=== PATIENT | female | born 1970 | race Caucasian/White ===

== ENCOUNTER 2017-01-06 12:05 | Emergency (ER) | payer OTHER, MEDICAID ==
[2017-01-06] MEDS ORDERED: OLANZapine DISINTEGR 5 MG TAB PO ONE (12:34)
--- NOTE | 2017-01-06 12:35 | EDPHY ---
Mental Health General Previous Psychiatric History: bipolar, PTSD Smoking Status: Current every day smoker Time Patient Placed on M1 Hold: 11:40 Time of Transfer of Care: 17:[address]:: Cristóbal Narrative: CHIEF COMPLAINT: M1 hold, suicidal ideations HISTORY OF PRESENT ILLNESS: 46-year-old female presents to the emergency department on an M1 hold for acute psychosis. [facility] when she reported SI and not wanting to live. Pt is rambling and unable to have a conversation. She has a history of bipolar and ptsd. Unknown if she is taking medications. Pt reports SI. She denies HI. REVIEW OF SYSTEMS: Unable to obtain due to mental status. Physical Exam Gen: Awake, agitated HEENT: PERRL, dry mucous membranes NECK: no meningismus CV: regular rate and regular rhythm PULM: CTAB, no wheezes ABDOMEN: soft, non tender to palpation, BS present BACK: No CVA tenderness NEURO: Follows commands, no facial asymmetry, moves all extremities EXTREMITIES: normal appearing SKIN: no rash or break in skin on exposed skin PSYCH: Rambling, tangential, anxious, suspicious, suicidal (Laverne Lo) Medical Decision Makin-Report passed on to Dr. Ambrocio at the end of my shift pending mental health evaluation. Urine tox screen positive for methamphetamines. Eval 12 hours later. (Laverne Lo) 1700 care assumed by me from REMY Lo pending mental health evaluation. [address] patient signed out to Dr. Ng pending mental health evaluation. No issues during my care this patient. (Kody Ambrocio) [id number]: Donald with P, has seen and evaluated patient. On METH. Calm cooperative. Denies suicidal ideation. She would like to be discharged from the emergency room. She was evaluated by mental health. Mental state is due to methamphetamine abuse. She has, cooperative. Does not want hurt herself or anybody else. Mental health does not feel that they need to admit her for inpatient psychiatric stabilization. They recommend outpatient follow-up and discharge. I did go Greet the patient meet with her. She is resting comfortably no acute distress., cooperative does not want hurt herself or anybody else. (Shashank Ng) - Objective Vital Signs: Initial Vital Signs Temperature (C) 36.8 C 01/06/17 12:14 Heart Rate 96 01/06/17 12:14 Respiratory Rate 20 01/06/17 12:14 Blood Pressure 127/92 H 01/06/17 12:14 O2 Sat (%) 97 01/06/17 12:14 O2 Delivery Mode Room Air Allergies/Adverse Reactions: nitrofurantoin [From Macrobid] Allergy (Verified 03/07/16 19:07) nitrofurantoin macrocrystalline [From Macrobid] Allergy (Verified 03/07/16 19:07 ) Home Medications: Medication Instructions Recorded Acyclovir 5% [Zovirax 5% 15 GM 1 celia TP 5XD PRN 03/02/16 (RX)] Acyclovir [Zovirax 400 mg (*)] 400 mg PO 5XD PRN 03/02/16 Albuterol [Proventil Inhaler HFA 1 - 2 puffs IH Q4H PRN 03/02/16 (*)] Atomoxetine HCl [Strattera] 40 mg PO DAILY 03/02/16 Budesonide 180 Mcg INH [Pulmicort 1 puffs IH BID 03/02/16 180Mcg Flexhaler (*)] Ibuprofen [Motrin (*)] 600 mg PO Q8H PRN 03/02/16 Acetaminophen [Tylenol 325mg (*)] 650 mg PO Q4HRS PRN #0 tab 03/05/16 Ertapenem [INVanz] 1 gm IV DAILY #0 vial 03/05/16 clonazePAM [Klonopin (*)] 0.5 mg PO TID PRN #30 tab 03/05/16 clonazePAM [klonoPIN (*)] 2 mg PO DAILY PRN #10 tab 03/05/16 oxyCODONE HCL [Oxycontin] 20 mg PO Q12H #20 tab.er.12h 03/05/16 oxyCODONE IR [Oxycodone Ir (*)] 5 - 10 mg PO Q4 PRN #40 tab 03/05/16 Perephazine 03/07/16 Neurontin 01/06/17 Seroquel 01/06/17 traZODone 01/06/17 Medications Given: Discontinued Medications Gabapentin (Neurontin) 600 mg PO EDNOW ONE Stop: 01/06/17 19:14 Last Admin: 01/06/17 19:26 Dose: 600 mg Olanzapine (Zyprexa Zydis) 5 mg PO EDNOW ONE Stop: 01/06/17 12:35 Last Admin: 01/06/17 12:49 Dose: 5 mg Quetiapine Fumarate (Seroquel) 100 mg PO EDNOW ONE Stop: 01/06/17 19:14 Last Admin: 01/06/17 19:26 Dose: 100 mg Laboratory Results: Laboratory Results 01/06/17 13:30 01/06/17 13:30 Departure - Departure Disposition: Home, Routine, Self-Care Clinical Impression: Methamphetamine abuse Condition: Good Instructions: Methamphetamine Abuse (ED) Additional Instructions: 1. Return emergency room immediately if he develops thoughts of wanting to hurt herself or anybody else. 2. Refrain from doing methamphetamine. Referrals: NONE *PRIMARY CARE P,. [Primary Care Provider] - As per Instructions
[2017-01-06 13:35] LABS: % IMMATURE GRANULYOCYTES 0.4 % (0.0-1.1); ABSOLUTE IMMATURE GRANULOCYTES 0.03 10^3/uL (0.00-0.10); ADD DIFF? NO; ADD MORPH? NO; ADD SCAN? NO; ATYPICAL LYMPHOCYTE FLAG 20 (0-99); FRAGMENT RBC FLAG 0 (0-99); HEMATOCRIT 41.2 % (38.0-47.0); HEMOGLOBIN 14.2 g/dL (12.6-16.3); LEFT SHIFT FLG 0 (0-99); LIPEMIA HEMOLYSIS FLAG 90 (0-99); MEAN CELL HEMOGLOBIN 32.9 pg (27.9-34.1); MEAN CELL HEMOGLOBIN CONCENTR. 34.5 g/dL (32.4-36.7); MEAN CELL VOLUME 95.4 fL (81.5-99.8); MEAN PLATELET VOLUME 9.2 fL (8.7-11.7); PLATELET CLUMPS FLAG 0 (0-99); PLATELET COUNT 230 10^3/uL (150-400); RED BLOOD CELL COUNT 4.32 10^6/uL (4.18-5.33); RED CELL DISTRIBUTION WIDTH 12.2 % (11.5-15.2)
[2017-01-06 13:51] LABS: ANION GAP 14 mEq/L (8-16); CALCIUM 10.1 mg/dL (8.5-10.4); CARBON DIOXIDE 19 mEq/l (22-31); CHLORIDE 104 mEq/L (97-110); CREATININE 0.6 mg/dL (0.6-1.0); ETHANOL SERUM < 10 mg/dL (0-10); GLOMERULAR FILTRATION RATE > 60; GLUCOSE 80 mg/dL (70-100); POTASSIUM 3.9 mEq/L (3.5-5.2); SODIUM 137 mEq/L (134-144)
[2017-01-06 16:54] VITALS: RESP 16
[2017-01-06] MEDS ORDERED: GABAPENTIN 300 MG CAP PO ONE (19:13)
[2017-01-06] MEDS ORDERED: QUEtiapine FUMARATE 200 MG TAB PO ONE (19:13)
[2017-01-06 22:52] VITALS: O2SAT 96
[2017-01-07 05:50] VITALS: BP 123/75; PULSE 74; TEMP 97.9
== END 2017-01-07 05:51 | disposition home or self-care (01) ==
LOC: EDUNIT#
DX: F15.10 Other stimulant abuse, uncomplicated (principal); F17.200 Nicotine dependence, unspecified, uncomplicated
CPT/HCPCS: 80305; G0480

== ENCOUNTER 2017-02-28 08:44 | Emergency (ER) | payer OTHER, MEDICAID ==
--- NOTE | 2017-02-28 09:31 | EDPHY ---
H & P Time Seen by Provider: 02/28/17 08:57 HPI/ROS: CHIEF COMPLAINT: "Sinus symptoms " HISTORY OF PRESENT ILLNESS: Patient is a 39-year-old female who presents to the emergency department with ongoing sinus symptoms. Patient states that she has had sinus congestion for past month. It has worsened over the past week. She describes sinus pressure. She has had nasal congestion. She has had a mild headache. No fevers or chills. No nausea or vomiting. No abdominal pain. No cough or shortness of breath. REVIEW OF SYSTEMS: My complete review of systems is negative except as mentioned in the HPI. Past Medical/Surgical History: Includes cystitis, chronic pain, attention deficit hyperactivity disorder, bipolar disorder Includes: Tonsillectomy Social history: The patient is homeless. Smoking Status: Current every day smoker Physical Exam: Vitals noted GENERAL: Well-appearing, in no acute distress, alert. HEENT: Eyes normal to inspection, normal pharynx, no signs of dehydration. NECK: No thyromegaly, no lymphadenopathy, supple. RESPIRATORY: Clear to auscultation bilaterally, no rales, rhonchi or wheezing. CVS: Regular rate and rhythm, no rubs, murmurs, or gallops. ABDOMEN: Soft, nontender, nondistended, no organomegaly. BACK: Normal to inspection, no CVA tenderness. SKIN: Normal color, no rash, warm, dry. No pallor. EXTREMITIES: No pedal edema, no calf tenderness, no Homans sign or cords, no joint swelling. NEURO/PSYCH: Alert and oriented x3, normal mood and affect, normal motor sensory exam. Constitutional: Initial Vital Signs Temperature (C) 36.5 C 02/28/17 08:48 Heart Rate 104 H 02/28/17 08:48 Respiratory Rate 18 02/28/17 08:48 Blood Pressure 113/77 02/28/17 08:48 O2 Sat (%) 95 02/28/17 08:48 O2 Delivery Mode Room Air Allergies/Adverse Reactions: nitrofurantoin [From Macrobid] Allergy (Verified 03/07/16 19:07) nitrofurantoin macrocrystalline [From Macrobid] Allergy (Verified 03/07/16 19:07 ) Home Medications: Medication Instructions Recorded Acyclovir 5% [Zovirax 5% 15 GM 1 celia TP 5XD PRN 03/02/16 (RX)] Acyclovir [Zovirax 400 mg (*)] 400 mg PO 5XD PRN 03/02/16 Albuterol [Proventil Inhaler HFA 1 - 2 puffs IH Q4H PRN 03/02/16 (*)] Atomoxetine HCl [Strattera] 40 mg PO DAILY 03/02/16 Budesonide 180 Mcg INH [Pulmicort 1 puffs IH BID 03/02/16 180Mcg Flexhaler (*)] Ibuprofen [Motrin (*)] 600 mg PO Q8H PRN 03/02/16 Acetaminophen [Tylenol 325mg (*)] 650 mg PO Q4HRS PRN #0 tab 03/05/16 Ertapenem [INVanz] 1 gm IV DAILY #0 vial 03/05/16 clonazePAM [Klonopin (*)] 0.5 mg PO TID PRN #30 tab 03/05/16 clonazePAM [klonoPIN (*)] 2 mg PO DAILY PRN #10 tab 03/05/16 oxyCODONE HCL [Oxycontin] 20 mg PO Q12H #20 tab.er.12h 03/05/16 oxyCODONE IR [Oxycodone Ir (*)] 5 - 10 mg PO Q4 PRN #40 tab 03/05/16 Perephazine 03/07/16 Neurontin 01/06/17 Seroquel 01/06/17 traZODone 01/06/17 Medical Decision Making ED Course/Re-evaluation: In the emergency department I discussed possible etiologies with the patient. I answered all her questions. She will be given a prescription for Augmentin. She is given the 1st dose in the emergency department. She is given warnings prior to leaving. She will return with worsening symptoms. Differential Diagnosis: My differential includes but is not limited to sinusitis, viral illness, bronchitis, pneumonia, bacteremia, sepsis, mass, malignancy, subarachnoid hemorrhage, CVA Departure - Departure Disposition: Home, Routine, Self-Care Clinical Impression: Sinusitis Qualifiers: Sinusitis location: frontal Chronicity: acute Recurrence: recurrent Qualified Code(s): J01.11 - Acute recurrent frontal sinusitis Condition: Good Instructions: Sinusitis (ED) Additional Instructions: Take your entire course of antibiotics. Return with worsening symptoms. Referrals: Carter Andrew MD [Primary Care Provider] - 2-3 days, if not improved
[2017-02-28 09:48] VITALS: BP 103/73; PULSE 17; RESP 19; TEMP 98.5; O2SAT 98
== END 2017-02-28 09:46 | disposition home or self-care (01) ==
DX: J01.11 Acute recurrent frontal sinusitis (principal); F17.200 Nicotine dependence, unspecified, uncomplicated

== ENCOUNTER 2017-09-10 10:14 | Emergency (ER) | payer OTHER, MEDICAID ==
--- NOTE | 2017-09-10 10:19 | EDPHY ---
HPI/HX/ROS/PE/MDM Narrative: CHIEF COMPLAINT: Left upper abdominal pain HPI: The patient is a 47 y/o female with a history of schizoaffective disorder and bipolar disorder arriving via EMS with [facility] complaining of left upper abdominal pain. Per [facility], [facility] was called to the patient's car 2 days ago as her [place]. At this time [facility] discovered that the patient was living out of her car. Today [facility] was called again and the patient stated that she wanted to kill herself. [facility] placed the patient on an M1 hold for suicidal ideations. The patient has not been taking her psychiatric medications. At this time she also started complaining of left upper abdominal pain and a decreased appetite. The pain has since resolved and she is unable to describe how the pain felt. Denies vomiting, diarrhea, recent trauma, chest pain , shortness of breath, numbness, paresthesias or fever. REVIEW OF SYSTEMS: Aside from elements discussed in the HPI, a comprehensive 10-point review of systems was reviewed and is negative. PMH: Schizoaffective disorder, bipolar SOCIAL HISTORY: Transient, single, not employed PHYSICAL EXAM: General: Patient is alert, in no acute distress. ENT: Eyes are normal to inspection. ENT inspection normal. Neck: Normal inspection. Full range of motion. Respiratory: No respiratory distress. Breath sounds normal bilaterally. Cardiovascular: Regular rate and rhythm. Strong peripheral pulses. Normal cap refill. Abdomen: The abdomen is nontender to palpation. There are no peritoneal signs. There are normal bowel sounds. Back: Normal to inspection. No tenderness to palpation. Skin: Normal color. No rash. Warm and dry. Extremities: Normal appearance. Full range of motion. Neuro: Oriented x3. Normal motor function. Normal sensory function. Psych: Flat affect, denies suicidal ideation. (Erick Montero) ED Course: 1016: I met EMS upon arrival. 1352: Patient's CBC and BMP are normal; UA and drug toxicity screen ordered. 1500: Patient care has been turned over to Dr. Ramos at shift change. (Erick Montero) 7:20 p.m. patient has not received any of her medications that she normally takes daily or multiple times a day while she has been here in the emergency department. We had pharmacy reconcile her meds. We will give her her medication that would be due either today or this afternoon. (Raphael Ramos) 0607: Patient has been seen and evaluated by mental health. She contracts for safety she is no longer suicidal or homicidal. She does have a chronic use of methamphetamine and admits to doing methamphetamine. The M1 hold has been lifted. She has a follow-up plan in place. She is comfortable being discharged. She did have a full evaluation with mental health. (Shashank Ng ) MDM: Patient has remained stable on my shift. She is given her evening medication. Her tox screen is positive for amphetamine . She is awaiting evaluation Care to Dr. Ng at midnight (Raphael Ramos) - Data Points Laboratory Results: Laboratory Results 09/10/17 11:44 09/10/17 11:44 Medications Given: Discontinued Medications Acetaminophen (Tylenol) 650 mg PO EDNOW ONE Stop: 09/10/17 20:06 Last Admin: 09/10/17 20:11 Dose: 650 mg Clonazepam (Klonopin) 0.5 mg PO EDNOW ONE Stop: 09/10/17 19:26 Last Admin: 09/10/17 20:14 Dose: 0.5 mg Clonidine (Catapres) 0.05 mg PO EDNOW ONE Stop: 09/10/17 19:27 Last Admin: 09/10/17 20:14 Dose: 0.05 mg Famotidine (Pepcid) 20 mg PO EDNOW ONE Stop: 09/10/17 20:07 Last Admin: 09/10/17 20:10 Dose: 20 mg Gabapentin (Neurontin) 600 mg PO EDNOW ONE Stop: 09/10/17 19:27 Last Admin: 09/10/17 20:14 Dose: 600 mg Lamotrigine (Lamictal) 100 mg PO EDNOW ONE Stop: 09/10/17 19:26 Last Admin: 09/10/17 20:12 Dose: 100 mg Perphenazine (Trilafon) 4 mg PO EDNOW ONE Stop: 09/10/17 19:29 Last Admin: 09/10/17 20:11 Dose: 4 mg Throat Lozenges (Cepacol Lozenge) 1 ea PO EDNOW ONE Stop: 09/10/17 14:33 Last Admin: 09/10/17 14:44 Dose: 1 ea General Time Seen by Provider: 09/10/17 10:16 Initial Vital Signs: Initial Vital Signs Temperature (C) 36.5 C 09/10/17 10:15 Heart Rate 87 09/10/17 10:15 Respiratory Rate 16 09/10/17 10:15 Blood Pressure 138/85 H 09/10/17 10:15 O2 Sat (%) 97 09/10/17 10:15 O2 Delivery Mode Room Air Allergies/Adverse Reactions: nitrofurantoin [From Macrobid] Allergy (Verified 03/07/16 19:07) nitrofurantoin macrocrystalline [From Macrobid] Allergy (Verified 03/07/16 19:07 ) Home Medications: Medication Instructions Recorded Acyclovir 5% [Zovirax 5% 15 GM 1 celia TP 5XD PRN 03/02/16 (RX)] Acyclovir [Zovirax 400 mg (*)] 400 mg PO 5XD PRN 03/02/16 Albuterol [Proventil Inhaler HFA 1 - 2 puffs IH Q4H PRN 03/02/16 (*)] Gabapentin [Neurontin] 600 mg PO TID 09/10/17 Ibuprofen [Motrin (*)] 200 mg PO Q8 PRN 09/10/17 Lisdexamfetamine Dimesylate 10 mg PO DAILY@15 09/10/17 [Vyvanse] Lisdexamfetamine Dimesylate 40 mg PO DAILY 09/10/17 [Vyvanse] Perphenazine [PERPHENAZINE] 4 mg PO BID 09/10/17 clonIDINE [Catapres (*)] 0.05 mg PO DAILY 09/10/17 clonIDINE [Catapres (*)] 0.1 mg PO HS 09/10/17 clonazePAM [klonoPIN (*)] 0.5 mg PO BID PRN 09/10/17 lamoTRIgine [LamICTAL 100 MG (*)] 100 mg PO DAILY 09/10/17 lamoTRIgine [LamICTAL] 25 mg PO DAILY 09/10/17 traZODone [traZODONE 100MG (*)] 300 mg PO HS 09/10/17 Departure - Departure Disposition: Home, Routine, Self-Care Clinical Impression: Methamphetamine abuse Condition: Good Instructions: Methamphetamine Abuse (ED) Additional Instructions: 1. Return to the emergency room if you have any worsening symptoms questions or concerns this includes thoughts to hurt herself or anybody else. Referrals: Patient,NotPresent [Unknown] - As per Instructions Report Scribed for: Erick Montero Report Scribed by: Thania Seymour Date of Report: 09/10/17 Time of Report: 10:31 Physician Review and Approval Statement: Portions of this note were transcribed by an ED scribe. I personally performed the history, physical exam, and medical decision making; and confirm the accuracy of the information in the transcribed note.
[2017-09-10 11:53] LABS: PLATELET COUNT 259 10^3/uL (150-400)
[2017-09-10] MEDS ORDERED: CEPACOL LOZENGE PO ONE (14:32)
[2017-09-10] MEDS ORDERED: lamoTRIgine 100 MG TAB PO ONE (19:25)
[2017-09-10] MEDS ORDERED: clonazePAM 0.5 MG TAB PO ONE (19:25)
[2017-09-10] MEDS ORDERED: GABAPENTIN 300 MG CAP PO ONE (19:26)
[2017-09-10] MEDS ORDERED: PERPHENAZINE 2 MG TAB PO ONE (19:28)
[2017-09-10] MEDS ORDERED: ACETAMINOPHEN 325 MG TAB PO ONE (20:05)
[2017-09-10] MEDS ORDERED: FAMOTIDINE 20 MG TAB PO ONE (20:06)
[2017-09-11 06:19] VITALS: BP 111/71
== END 2017-09-11 06:40 | disposition home or self-care (01) ==
LOC: EDBD → EDUNIT#
DX: F15.10 Other stimulant abuse, uncomplicated (principal)
CPT/HCPCS: 80305

== ENCOUNTER 2017-09-24 13:31 | Emergency (ER) | payer OTHER, MEDICAID ==
--- NOTE | 2017-09-24 14:15 | EDPHY ---
H & P Smoking Status: Current every day smoker Time Seen by Provider: 09/24/17 14:01 HPI/ROS: Chief complaint. Altered mental status HPI. Patient is a 39-year-old female here by EMS with altered mental status. Patient does not speak but she does nod yes and no. She nods yes when I asked her about taking too many medications. She nods yes when I asked her if she was trying to hurt herself. She nods no when I asked her if she has have any chest discomfort, shortness of breath, abdominal pain. The time of the ingestions is not clear. She does nod yes when I asked her about did she take all of her medications. Constitutional. Generalized weakness Eyes. no problems with vision ENT. no sore throat, no nasal drainage Cardiovascular. no chest pain Respiratory. no shortness of breath, no cough Abdominal. no abdominal pain, no nausea/vomiting, no diarrhea . no problems urinating MS. no calf pain/swelling, no neck/back pain, no joint pain Skin. no rash Lymph. no swollen glands Neuro. Lethargy and decreased mental status. Does not speak (Raphael Ramos) Past Medical/Surgical History: Unknown past medical history as the patient has not been seen here before ( Raphael Ramos) Social History: Unknown social history (Raphael Ramos) Physical Exam: General Appearance: Alert but non verbal well-developed female with vital signs showing heart rate 95 and blood pressure 130/83 Eyes: Pupils equal and round no pallor or injection. ENT, Mouth: Mucous membranes are moist. Respiratory: There are no retractions, lungs are clear to auscultation. Cardiovascular: Regular rate and rhythm. Gastrointestinal: Abdomen is soft and nontender, no masses, bowel sounds normal. Neurological: Awake and alert, sensory and motor exams grossly normal. Skin: Warm and dry, no rashes. Musculoskeletal: Neck is supple nontender. Extremities symmetrical, full range of motion. Psychiatric: Patient responds appropriately with yes or no nods to questions ( Raphael Ramos) Constitutional: Initial Vital Signs Temperature (C) 36.6 C 09/24/17 14:36 Heart Rate 100 09/24/17 14:36 Respiratory Rate 20 09/24/17 14:36 Blood Pressure 145/62 H 09/24/17 14:36 O2 Sat (%) 95 09/24/17 14:36 O2 Delivery Mode Room Air O2 (L/minute) 2 Allergies/Adverse Reactions: nitrofurantoin [From Macrobid] Allergy (Verified 03/07/16 19:07) nitrofurantoin macrocrystalline [From Macrobid] Allergy (Verified 03/07/16 19:07 ) Home Medications: Medication Instructions Recorded Acyclovir 5% [Zovirax 5% 15 GM 1 celia TP 5XD PRN 03/02/16 (RX)] Acyclovir [Zovirax 400 mg (*)] 400 mg PO 5XD PRN 03/02/16 Albuterol [Proventil Inhaler HFA 1 - 2 puffs IH Q4H PRN 03/02/16 (*)] Gabapentin [Neurontin] 600 mg PO TID 09/10/17 Ibuprofen [Motrin (*)] 200 mg PO Q8 PRN 09/10/17 Lisdexamfetamine Dimesylate 10 mg PO DAILY@15 09/10/17 [Vyvanse] Lisdexamfetamine Dimesylate 40 mg PO DAILY 09/10/17 [Vyvanse] Perphenazine [PERPHENAZINE] 4 mg PO BID 09/10/17 clonIDINE [Catapres (*)] 0.05 mg PO DAILY 09/10/17 clonIDINE [Catapres (*)] 0.1 mg PO HS 09/10/17 clonazePAM [klonoPIN (*)] 0.5 mg PO BID PRN 09/10/17 lamoTRIgine [LamICTAL 100 MG (*)] 100 mg PO DAILY 09/10/17 lamoTRIgine [LamICTAL] 25 mg PO DAILY 09/10/17 traZODone [traZODONE 100MG (*)] 300 mg PO HS 09/10/17 Medical Decision Making - Diagnostics EKG Interpretation: EKG interpreted by me showing normal sinus rhythm the with normal interval and axis. QRS otherwise normal there is no significant ST elevation or depression. No arrhythmia. The rate is 98 (Raphael Ramos) Procedures: IV normal saline, monitor (Raphael Ramos) ED Course/Re-evaluation: Patient's combative and yelling homicidal thoughts of killing people. She is placed on a detainer Tox screen positive for opiates and methamphetamine. Patient is given Zyprexa and Ativan for her agitation Recheck again at 8:05 p.m.. Patient is stable. Somewhat rambling in her speech but resting comfortably. (Raphael Ramos) 4:00 a.m.- The patient is now awake and alert. She says she has does not recall what the events were the brought her into the emergency department. I explained to her that she was yelling that she wanted to kill people. She says that she is no longer feeling this way whatsoever. She denies any auditory or or visual hallucinations. She denies any suicidal or homicidal ideations. I did explain her that her urine toxicology was positive for opiates and methamphetamine. I explained that her symptoms could be stemming from her drug use. She is receptive to this and agrees that she needs to stop using. [facility] and would like to return there. I feel this is reasonable. She has been able to eat and drink without difficulty and she is walking with a steady gait. We will discharge her home. (Brittney Ga) Differential Diagnosis: Polysubstance abuse. Gravely disabled. (Raphael Ramos) Care Turn Over: Dr. Ga at 9:45 pm (Raphael Ramos) - Data Points Laboratory Results: Laboratory Results 09/24/17 13:42 09/24/17 13:42 Medications Given: Discontinued Medications Lorazepam (Ativan Injection) 1 mg IVP EDNOW ONE Stop: 09/24/17 15:22 Last Admin: 09/24/17 16:24 Dose: 1 mg Olanzapine (Zyprexa Zydis) 5 mg PO EDNOW ONE Stop: 09/24/17 15:22 Last Admin: 09/24/17 16:23 Dose: 5 mg Departure - Departure Disposition: Home, Routine, Self-Care Clinical Impression: Polysubstance (including opioids) dependence with physiological dependence, Homicidal ideation Condition: Good Instructions: Methamphetamine (By mouth) Additional Instructions: You need to avoid using methamphetamine. Referrals: [facility],. [Clinic] - As per Instructions
[2017-09-24 14:25] LABS: PLATELET COUNT 264 10^3/uL (150-400)
--- NOTE | 2017-09-24 15:03 | CPEKG ---
Heart Rate: 98 RR Interval: 612 P-R Interval: 140 QRSD Interval: 72 QT Interval: 392 QTC Interval: 501 P Hana: 70 QRS Hana: 72 T Wave Hana: 59 EKG Severity - ABNORMAL ECG - EKG Impression: SINUS RHYTHM EKG Impression: LEFT ATRIAL ABNORMALITY EKG Impression: BORDERLINE T ABNORMALITIES, ANT-LAT LEADS EKG Impression: BORDERLINE PROLONGED QT INTERVAL Electronically Signed By: Raphael Ramos 24-Sep-2017 15:38:03
[2017-09-24] MEDS ORDERED: OLANZapine DISINTEGR 5 MG TAB PO ONE (15:21)
[2017-09-24] MEDS ORDERED: LORazepam 2 MG/ML INJ IVP ONE (15:21)
[2017-09-25 00:59] VITALS: BP 114/72
== END 2017-09-25 06:26 | disposition home or self-care (01) ==
LOC: EDUNIT#
DX: F19.20 Other psychoactive substance dependence, uncomplicated (principal); R45.850 Homicidal ideations; F17.200 Nicotine dependence, unspecified, uncomplicated
CPT/HCPCS: 93005; 96374; 99284; J2060; 80305; G0480

== ENCOUNTER 2017-10-22 07:43 | Emergency (ER) | payer MEDICAID, OTHER ==
--- NOTE | 2017-10-22 07:51 | EDPHY ---
HPI/HX/ROS/PE/MDM Narrative: CHIEF COMPLAINT: Difficulty breathing after using meth HISTORY OF PRESENT ILLNESS: The patient is a 47 y/o female with a history of schizophrenia and asthma complaining of chest pain, difficulty breathing, and sore throat after using meth an hour ago. She felt normal yesterday and earlier this morning. She reports smoking a small amount of meth about an hour ago when she became worried about the credibility of the person she was smoking with as he was using a melted pen to smoke it and she wasn't sure it was meth they were smoking. She developed tightness in her chest and a sore throat. She directed him to leave and summoned EMS. En route the tightness in her chest developed into pain. She expresses concern about polyurethane poisoning. She denies history of arrhythmias, cardiac conditions, PE history, DVT history, or other relevant medical conditions. She took her prescribed Vyvanse as directed yesterday morning and denies taking it today. She reports that the symptoms she is having differ from previous panic attacks and asthma attacks. Further she has had a runny nose and cough for the last few days. No fever, chills, palpitations, vomiting, diarrhea, urinary complaints, headache , lightheadedness. REVIEW OF SYSTEMS: Aside from elements discussed in the HPI, a comprehensive 10-point review of systems was reviewed and is negative. PAST MEDICAL HISTORY: Schizophrenia, panic attacks, asthma SOCIAL HISTORY: Every day cigarette smoker, disabled, unemployed, mother lives locally VITAL SIGNS: Reviewed by me GENERAL: Well-developed, well-nourished, in no respiratory distress. Slightly anxious, pleasant. HEENT: Atraumatic. Eyes: Pupils 5mm bilaterally and reactive to light. No icterus, no injection. Mouth: moist mucous membranes. No erythema or lesions. Neck: supple with no adenopathy. LUNGS: Diminished breath sounds throughout. Clear to auscultation bilaterally, no wheezes, rhonchi or rales. CARDIAC: Tachycardic rate and rhythm, no rubs, murmurs or gallops. ABDOMEN: Soft, nontender, nondistended, bowel sounds normal. BACK: No CVA tenderness. EXTREMITIES: No trauma. No edema. Range of motion is normal throughout. NEURO: Alert and oriented, grossly nonfocal. SKIN: Cool to the touch and dry, no rash. Mosquito bites on legs, no significant edema. PSYCHIATRIC: Normal mentation, no agitation. ED Course: 12-LEAD EKG: Please see the full report in [facility]. My interpretation: Sinus tachycardia X-ray: Chest x-ray was obtained. I viewed the images myself on the PACS system. My interpretation of the images is: normal chest. The radiologist interpretation is negative for acute findings. I discussed the x-ray findings with the patient. The patient presents with chest pain and a sore throat after smoking meth an hour ago. She expresses concern over possible plastic poisoning as she was smoking through a partially melted plastic pen. On exam she is tachycardic with diminished but clear breath sounds throughout. She is clearly anxious. Plan for urinalysis, drug panel, CBC, basic metabolic panel, beta-HCG, D-dimer, iSTAT troponin, EKG, and chest x-ray. 8:35 AM - She is now complaining of pain in her genitals. She reports intercourse recently and feels it was out of the ordinary. She is concerned that something may be poisoning her or a foreign object may be placed in her from the intercourse. Further she has pain with urination. Her mental status seems more altered from the meth use. Plan for a pelvic exam and a lab troponin. On pelvic examination, a small purple cylindrical, and about 2 cm long and 0.5 cm in diameter was removed from the patient's vagina. On further inspection, this object did contain 2 button batteries, however, the casing was intact. She requested a rectal exam to check for any foreign objects. No foreign objects or abnormalities on the rectal exam. Law enforcement was notified. 9:20 AM - EKG is sinus tachycardia. Chest x-ray is negative for acute findings. Labs show meth and marijuana use, and a urinary tract infection. 9:35 AM - The patient is now concerned about her toes being stuck together with a glue-like substance. Visual inspection indicates it is a fungal infection. She now informs me she gets frequent urinary tract infections and has interstitial cystitis. 10:20 AM - She has declined to press charges. She will continue to remain in the emergency department as her tests come back and her condition improves. 12:30 AM - The patient's work up has not found anything aside from the meth use , UTI, and foreign object in her vagina. Her chlamydia and gonorrhea results will be called to her later. She is safe to return home. She agrees to this course of action. Return precautions and follow up instructions given. MDM: Differential diagnoses for the patient's symptom complex was considered including but not limited to shortness of breath and tachycardia from asthma exacerbation, methamphetamine use, bronchospasm, drug or alcohol withdrawal, drug or alcohol intoxication. Vaginal discomfort from vaginitis, urinary tract infection, foreign body. - Data Points Laboratory Results: Laboratory Results 10/22/17 08:23 10/22/17 08:23 Medications Given: Discontinued Medications Albuterol (Proventil Neb) 3 ml IH EDNOW ONE Stop: 10/22/17 07:53 Last Admin: 10/22/17 08:59 Dose: 3 ml Albuterol/Ipratropium (Duoneb) 3 ml IH EDNOW ONE Stop: 10/22/17 07:53 Last Admin: 10/22/17 08:46 Dose: 3 ml Clonazepam (Klonopin) 1 mg PO EDNOW ONE Stop: 10/22/17 12:21 Last Admin: 10/22/17 12:37 Dose: 1 mg Sodium Chloride (Ns) 1,000 mls @ 0 mls/hr IV ONCE ONE; Wide Open PRN Reason: Protocol Stop: 10/22/17 07:53 Last Admin: 10/22/17 08:42 Dose: 1,000 mls Sodium Chloride (Ns) 1,000 mls @ 0 mls/hr IV ONCE ONE PRN Reason: Wide Open Stop: 10/22/17 09:26 Last Admin: 10/22/17 09:29 Dose: 1,000 mls Ceftriaxone Sodium/Dextrose (Rocephin 1 Gm (Premix)) 50 mls @ 100 mls/hr IV EDNOW ONE PRN Reason: Protocol Stop: 10/22/17 11:15 Last Admin: 10/22/17 11:18 Dose: 50 mls Sodium Chloride (Ns) 1,000 mls @ 0 mls/hr IV ONCE ONE; Wide Open PRN Reason: Protocol Stop: 10/22/17 10:47 Last Admin: 10/22/17 11:17 Dose: 1,000 mls Lorazepam (Ativan Injection) 1 mg IVP EDNOW ONE Stop: 10/22/17 07:57 Last Admin: 10/22/17 08:43 Dose: 1 mg Lorazepam (Ativan Injection) 1 mg IVP EDNOW ONE Stop: 10/22/17 09:26 Last Admin: 10/22/17 09:30 Dose: 1 mg Prednisone (Prednisone) 60 mg PO EDNOW ONE Stop: 10/22/17 12:17 Last Admin: 10/22/17 12:38 Dose: 60 mg Point of Care Test Results: Chemistry 10/22/17 08:31 POC Troponin I 0.01 ng/mL ng/mL (0.00-0.08) Microbiology Results: MICROBIOLOGY 10/22/17 08:00 Urine,Clean Catch Urine Culture - Preliminary Staphylococcus Epidermidis General Initial Vital Signs: Initial Vital Signs Temperature (C) 36.8 C 10/22/17 07:46 Heart Rate 111 H 10/22/17 07:46 Respiratory Rate 18 10/22/17 07:46 Blood Pressure 155/100 H 10/22/17 07:46 O2 Sat (%) 97 10/22/17 07:46 O2 Delivery Mode Room Air Allergies/Adverse Reactions: nitrofurantoin [From Macrobid] Allergy (Verified 03/07/16 19:07) nitrofurantoin macrocrystalline [From Macrobid] Allergy (Verified 03/07/16 19:07 ) Home Medications: Medication Instructions Recorded Acyclovir 5% [Zovirax 5% 15 GM 1 celia TP 5XD PRN 03/02/16 (RX)] Acyclovir [Zovirax 400 mg (*)] 400 mg PO 5XD PRN 03/02/16 Albuterol [Proventil Inhaler HFA 1 - 2 puffs IH Q4H PRN 03/02/16 (*)] Gabapentin [Neurontin] 600 mg PO TID 09/10/17 Ibuprofen [Motrin (*)] 200 mg PO Q8 PRN 09/10/17 Lisdexamfetamine Dimesylate 10 mg PO DAILY@15 09/10/17 [Vyvanse] Lisdexamfetamine Dimesylate 40 mg PO DAILY 09/10/17 [Vyvanse] Perphenazine [PERPHENAZINE] 4 mg PO BID 09/10/17 clonIDINE [Catapres (*)] 0.05 mg PO DAILY 09/10/17 clonIDINE [Catapres (*)] 0.1 mg PO HS 09/10/17 clonazePAM [klonoPIN (*)] 0.5 mg PO BID PRN 09/10/17 lamoTRIgine [LamICTAL 100 MG (*)] 100 mg PO DAILY 09/10/17 lamoTRIgine [LamICTAL] 25 mg PO DAILY 09/10/17 traZODone [traZODONE 100MG (*)] 300 mg PO HS 09/10/17 Cephalexin [Keflex (RX)] 500 mg PO QID 7 Days cap 10/22/17 clonazePAM [klonoPIN (*)] 0.5 mg PO BID PRN #8 tab 10/22/17 predniSONE [prednisone 10mg (RX)] 40 mg PO DAILY 3 Days tab 10/22/17 Departure - Departure Disposition: Home, Routine, Self-Care Clinical Impression: Methamphetamine abuse Urinary tract infection Qualifiers: Urinary tract infection type: acute cystitis Hematuria presence: without hematuria Qualified Code(s): N30.00 - Acute cystitis without hematuria Vaginal foreign body Qualifiers: Encounter type: initial encounter Qualified Code(s): T19.2XXA - Foreign body in vulva and vagina, initial encounter Dyspnea Qualifiers: Dyspnea type: unspecified Qualified Code(s): R06.00 - Dyspnea, unspecified Condition: Good Instructions: Urinary Tract Infection in Women (ED), Vaginitis (ED), Methamphetamine Abuse (ED) Additional Instructions: Drink plenty of fluid. Take antibiotics as directed. Keflex 500 mg by mouth 3 times a day for the next 7 days. Do not use amphetamines in the future. Please use your albuterol meter dose inhaler as directed. Please take the prednisone as directed. Referrals: NONE *PRIMARY CARE P,. [Primary Care Provider] - As per Instructions [facility],. [Clinic] - As per Instructions Prescriptions: Cephalexin [Keflex (RX)] 500 mg PO QID 7 Days cap clonazePAM [klonoPIN (*)] 0.5 mg PO BID PRN #8 tab PRN Reason: Anxiety predniSONE [prednisone 10mg (RX)] 40 mg PO DAILY 3 Days tab Report Scribed for: Yolanda Maher Report Scribed by: Anna Gonzalez Date of Report: 10/22/17 Time of Report: 08:05 Physician Review and Approval Statement: Portions of this note were transcribed by a medical claims representative. I personally performed a history, physical exam, medical decision making, and confirmed accuracy of information the transcribed note.
[2017-10-22] MEDS ORDERED: IPRATROPIUM/ALBUTEROL 3 ML DEYVIAL IH ONE (07:52)
[2017-10-22] MEDS ORDERED: ALBUTEROL 3 ML DEYVIAL IH ONE (07:52)
[2017-10-22] MEDS ORDERED: NS 1,000 ML IV ONE ×3 (07:52→10:46)
[2017-10-22] MEDS ORDERED: LORazepam 2 MG/ML INJ IVP ONE ×2 (07:56→09:25)
--- NOTE | 2017-10-22 08:19 | CPEKG ---
Heart Rate: 113 RR Interval: 531 P-R Interval: 148 QRSD Interval: 84 QT Interval: 344 QTC Interval: 472 P [place]: 73 QRS [place]: 61 T Wave [place]: 46 EKG Severity - BORDERLINE ECG - EKG Impression: SINUS TACHYCARDIA EKG Impression: PROBABLE LEFT ATRIAL ABNORMALITY Electronically Signed By: Yolanda Maher 23-Oct-2017 14:07:16
[2017-10-22 08:34] LABS: PLATELET COUNT 267 10^3/uL (150-400)
[2017-10-22 12:06] VITALS: BP 138/85
[2017-10-22] MEDS ORDERED: predniSONE 20 MG TAB PO ONE (12:16)
[2017-10-22] MEDS ORDERED: clonazePAM 1 MG TAB PO ONE (12:20)
[2017-10-25 13:58] LABS: GC AMPLIFICATION GENPROBE NEGATIVE (NEGATIVE)
== END 2017-10-22 12:51 | disposition home or self-care (01) ==
LOC: EDUNIT#
DX: R06.00 Dyspnea, unspecified (principal); F15.10 Other stimulant abuse, uncomplicated; N30.00 Acute cystitis without hematuria; T19.2XXA Foreign body in vulva and vagina, initial encounter; J45.909 Unspecified asthma, uncomplicated; F17.210 Nicotine dependence, cigarettes, uncomplicated; B95.7 Other staphylococcus as the cause of diseases classified elsewhere; E86.9 Volume depletion, unspecified; X58.XXXA Exposure to other specified factors, initial encounter
CPT/HCPCS: 71046; 93005; 96361; 96365; 96375; 96376; 99285; J0696; J2060; J7512; J7613; 80305; 84484-PO

== ENCOUNTER 2017-11-07 21:14 | Emergency (ER) | payer OTHER ==
--- NOTE | 2017-11-07 21:55 | EDPHY ---
H & P Stated Complaint: send by [facility] r/t threatening sfaff, alcohol intoxication Source: Patient - Personal History LMP (Females 10-55): Unknown Tetanus Vaccine Date: <10yrs - Medical/Surgical History Hx Asthma: No Hx Chronic Respiratory Disease: No Hx Diabetes: No Hx Cardiac Disease: No Hx Renal Disease: No Hx Cirrhosis: No Hx Alcoholism: No Hx HIV/AIDS: No Hx Splenectomy or Spleen Trauma: No Other PMH: tonsilectomy, Cystitis, CHRONIC PAIN, ADHD, BIPOLAR, c section, + ESBL , schizophrenia, bipolar - Social History Smoking Status: Current every day smoker Time Seen by Provider: 11/07/17 21:54 HPI/ROS: HPI CHIEF COMPLAINT: Threatening behavior, alcohol intoxication, M1 hold HISTORY OF PRESENT ILLNESS: 47-year-old female, history of bipolar disorder presents emergency room on M1 hold from the [facility], additionally she is intoxicated with alcohol. She was threatening staff at the [facility]. Patient was placed on M1 hold and brought to the emergency room. Here in emergency room I went to go and evaluate her and she states "F off" was unable to obtain any history from her as she is angry agitated and yelling at staff. Past Medical History: History of bipolar disorder Past Surgical History: No recent surgery Social History: Homelessness, history mental illness, alcoholism, daily alcohol use intoxicated today. Family History: Noncontributory ROS REVIEW OF SYSTEMS: A comprehensive 10 point review of systems is otherwise negative aside from elements mentioned in the history of present illness. Exam Constitutional intoxicated, angry, yelling triage nursing summary reviewed, vital signs reviewed, awake/alert. Eyes normal conjunctivae and sclera, EOMI, PERRLA. HENT normal inspection, atraumatic, moist mucus membranes, no epistaxis, neck supple/ no meningismus, no raccoon eyes. Respiratory clear to auscultation bilaterally, normal breath sounds, no respiratory distress, no wheezing. Cardiovascular rate normal, regular rhythm, no murmur, no edema, distal pulses normal. Gastrointestinal soft, non-tender, no rebound, no guarding, normal bowel sounds, no distension, no pulsatile mass. Genitourinary no CVA tenderness. Musculoskeletal no midline vertebral tenderness, full range of motion, no calf swelling, no tenderness of extremities, no meningismus, good pulses, neurovascularly intact. Skin pink, warm, & dry, no rash, skin atraumatic. Neurologic awake, alert and oriented x 3, AAOx3, moves all 4 extremities equally, motor intact, sensory intact, CN II-XII intact, normal cerebellar, normal vision, normal speech. Psychiatric yelling, intoxicated, angry, pressured speech Heme/Lymph/Immune no lymphadenopathy. Differential Diagnosis: Includes but is not limited to in a particular order acute substance abuse, alcohol mood disorder, alcohol intoxication, alcohol abuse, underlying mental illness, bipolar disorder, depression, oscar Medical Decision Making: Plan for patient IM Zyprexa 10 mg for acute agitation and pressured speech once more, will obtain blood work for medical clearance mental health evaluation. Re-evaluation: Patient is positive for methamphetamine as well as alcohol. Patient needs mental health evaluation signed over at 7:00 a.m. Shift change to Dr. Abebe ([facility]) Constitutional: Initial Vital Signs Temperature (C) 36.7 C 11/07/17 21:43 Heart Rate 98 11/07/17 21:43 Respiratory Rate 20 11/07/17 21:43 Blood Pressure 118/90 H 11/07/17 21:43 O2 Sat (%) 95 11/07/17 21:43 O2 Delivery Mode Room Air Allergies/Adverse Reactions: nitrofurantoin [From Macrobid] Allergy (Verified 11/07/17 21:41) nitrofurantoin macrocrystalline [From Macrobid] Allergy (Verified 11/07/17 21:41 ) Home Medications: Medication Instructions Recorded Albuterol [Proventil Inhaler HFA 2 puffs IH Q4HRS PRN #1 mdi 11/06/17 (*)] Benztropine Mesylate [Cogentin] 1 mg PO BID 7 Days tab 11/06/17 Gabapentin [Neurontin 300 MG (*)] 600 mg PO TID 7 Days cap 11/06/17 Perphenazine [Trilafon] 4 mg PO BID 7 Days tab 11/06/17 lamoTRIgine [LaMICtal] 25 mg PO DAILY 7 Days tab 11/06/17 lamoTRIgine [LamICTAL 100 MG (*)] 100 mg PO DAILY 7 Days tab 11/06/17 traZODone [traZODONE 100MG (*)] 100 mg PO HS PRN 7 Days tab 11/06/17 Medical Decision Making ED Course/Re-evaluation: 9:15 a.m. the patient has been evaluated by Mental Health. She is now sober and has normal cognition. Dr. Holman has lifted the hold. Will discharge. ( [employer]) - Data Points Laboratory Results: Laboratory Results 11/07/17 23:05 11/07/17 23:05 11/07/17 11/07/17 11/07/17 23:05 23:05 22:50 WBC 8.44 10^3/uL 10^3/uL (3.80-9.50) RBC 4.08 10^6/uL L 10^6/uL (4.18-5.33) Hgb 13.8 g/dL g/dL (12.6-16.3) Hct 39.4 % % (38.0-47.0) MCV 96.6 fL fL (81.5-99.8) MCH 33.8 pg pg (27.9-34.1) MCHC 35.0 g/dL g/dL (32.4-36.7) RDW 12.0 % % (11.5-15.2) Plt Count 237 10^3/uL 10^3/uL (150-400) MPV 9.3 fL fL (8.7-11.7) Neut % (Auto) 55.4 % % (39.3-74.2) Lymph % (Auto) 36.4 % % (15.0-45.0) Hand % (Auto) 6.5 % % (4.5-13.0) Eos % (Auto) 0.7 % % (0.6-7.6) Baso % (Auto) 0.6 % % (0.3-1.7) Nucleat RBC Rel Count 0.0 % % (0.0-0.2) Absolute Neuts (auto) 4.68 10^3/uL 10^3/uL (1.70-6.50) Absolute Lymphs (auto) 3.07 10^3/uL H 10^3/uL (1.00-3.00) Absolute Monos (auto) 0.55 10^3/uL 10^3/uL (0.30-0.80) Absolute Eos (auto) 0.06 10^3/uL 10^3/uL (0.03-0.40) Absolute Basos (auto) 0.05 10^3/uL 10^3/uL (0.02-0.10) Absolute Nucleated RBC 0.00 10^3/uL 10^3/uL (0-0.01) Immature Gran % 0.4 % % (0.0-1.1) Immature Gran # 0.03 10^3/uL 10^3/uL (0.00-0.10) Sodium 140 mEq/L mEq/L (135-145) Potassium 4.0 mEq/L mEq/L (3.3-5.0) Chloride 109 mEq/L mEq/L (97-110) Carbon Dioxide 24 mEq/l mEq/l (22-31) Anion Gap 7 mEq/L L mEq/L (8-16) BUN 7 mg/dL mg/dL (7-23) Creatinine 0.7 mg/dL mg/dL (0.6-1.0) Estimated GFR > 60 Glucose 84 mg/dL mg/dL (70-100) Calcium 9.4 mg/dL mg/dL (8.5-10.4) Urine Opiates Screen NEGATIVE (NEGATIVE) Urine Barbiturates NEGATIVE (NEGATIVE) Ur Phencyclidine Scrn NEGATIVE (NEGATIVE) Ur Amphetamine Screen NON-NEGATIVE H (NEGATIVE) U Benzodiazepines Scrn NEGATIVE (NEGATIVE) Urine Cocaine Screen NEGATIVE (NEGATIVE) U Marijuana (THC) Screen NEGATIVE (NEGATIVE) Ethyl Alcohol 140 mg/dL H mg/dL (0-10) Medications Given: Discontinued Medications Ibuprofen (Motrin) 600 mg PO EDNOW ONE Stop: 11/08/17 02:52 Last Admin: 11/08/17 02:57 Dose: 600 mg Olanzapine (Zyprexa Injection) 10 mg IM EDNOW ONE Stop: 11/07/17 21:57 Last Admin: 11/07/17 22:18 Dose: 10 mg Departure - Departure Disposition: Home, Routine, Self-Care Clinical Impression: Methamphetamine abuse, Alcoholism Bipolar disorder Qualifiers: Active/Remission status: remission status unspecified Qualified Code(s): F31.9 - Bipolar disorder, unspecified Condition: Fair Instructions: Abuse of Alcohol (ED), Methamphetamine Abuse (ED) Referrals: NONE *PRIMARY CARE P,. [Primary Care Provider] - As per Instructions
[2017-11-07] MEDS ORDERED: OLANZapine 10 MG/2 ML VIAL IM ONE (21:56)
--- NOTE | 2017-11-07 22:44 | ASMTLCPROG ---
Notes Note: Notes: [facility] contacted by [facility] and told they had placed Pt on M1 and the police were bringing her to [facility] ED. Pt is a Ct of [facility]'s, has a diagnosis of bipolar, but has not been seen for at least 2 months. [facility] spoke to who states her mental status change is not just related to substance use, but also indicative of worsening mental health. P reports past medications prescribed were Clonazepam 1mg PRN, Clonodine .01/ 1.5 each day as directed, Gabopentin 600mg BID and Lamotrigne 100mg 1x a day and 25mg 2 each AM. These medications and doses should be confirmed as P was not entirely clear if these medications were all prescribed together or over a period of time. Her psychiatrist is Dr. Gimenez. Date Signed: 11/07/2017 10:43 PM Electronically Signed By:Paola Zavala
[2017-11-07 23:14] LABS: PLATELET COUNT 237 10^3/uL (150-400)
[2017-11-08] MEDS ORDERED: IBUPROFEN 600 MG TAB PO ONE (02:51)
[2017-11-08 09:45] VITALS: BP 123/82
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
--- NOTE | 2017-11-08 10:51 | ASMTTCLDSP ---
TLC Discharge Disposition Disposition: Answers: Discharge If Answers: Yes DISCHARGED: Patient/family given suicide hotline info & SAMHSA brochure? Disposition Notes: Notes: Pt stated commitment or ability to keep self safe, denied thoughts of self harm or harm to others. Pt expressed a desire to f/u with [facility] appointment later today. [facility] will outreach pt. Pt was given local hotline information and SAMHSA brochure After an Attempt. Discharge Concerns/Recommendations: Notes: In consultation with [facility] ED physician, Grupo Abebe MD, and on-call psychiatrist, Ty Holman MD, both concurred that pt does not appear to meet 27-65 criteria requiring psychiatric hospitalization as pt does not appear to be an imminent risk of harm to self/others/gravely disabled due to a mental illness condition. Dr. Holman provided telephone order read back vacating M1 hold at 0905 hrs. Was patient given the Answers: Not applicable Inpatient Behavioral Health Prohibited Belongings List while in the ED? Psychiatrist vacating M1 Ty Holman MD Hold: Date and time M1 hold 11/08/2017 09:05 AM vacated (time format is hh:mm): Type of Hold: Answers: M1/72-hour Hold Hold initiated by: Answers: Police Date Signed: 11/08/2017 10:51 AM Electronically Signed By:Alex Toribio
== END 2017-11-08 09:44 | disposition home or self-care (01) ==
LOC: EDUNIT#
DX: F10.20 Alcohol dependence, uncomplicated (principal); F15.10 Other stimulant abuse, uncomplicated; F31.9 Bipolar disorder, unspecified; F17.200 Nicotine dependence, unspecified, uncomplicated
CPT/HCPCS: 80305; G0480

== ENCOUNTER 2018-01-25 11:36 | Emergency (ER) | payer OTHER ==
[2018-01-25] MEDS ORDERED: OLANZapine 5 MG TAB ONE (11:40)
--- NOTE | 2018-01-25 12:07 | EDPHY ---
H & P Stated Complaint: M1 - Personal History LMP (Females 10-55): Unknown Current Tetanus/Diphtheria Vaccine: Unsure Current Tetanus Diphtheria and Acellular Pertussis (TDAP): Unsure Tetanus Vaccine Date: <10yrs - Medical/Surgical History Hx Asthma: No Hx Chronic Respiratory Disease: No Hx Diabetes: No Hx Cardiac Disease: No Hx Renal Disease: No Hx Cirrhosis: No Hx Alcoholism: No Hx HIV/AIDS: No Hx Splenectomy or Spleen Trauma: No Other PMH: tonsilectomy, Cystitis, CHRONIC PAIN, ADHD, BIPOLAR, c section, + ESBL , schizophrenia, bipolar - Social History Smoking Status: Current every day smoker Time Seen by Provider: 01/25/18 11:41 HPI/ROS: CHIEF COMPLAINT: "Are you one of those ayo motherfuckers?" HISTORY OF PRESENT ILLNESS: 47-year-old homeless female history of bipolar disorder, prior history of hospitalization and seen at [facility] in the past, arrives via police on an M1 hold after she was found acting erratically, was yelling behind a gas station earlier today. On interview the patient she would not allow me to touch her, she threatening physical harm to me if I attempt to touch her. She is yelling a variety of expletives at me. Denies suicidal ideation or homicidal ideation stating, " Fuck no asshole, I ain't gonna kill myself". History is limited given the patient's agitation. History primarily obtained from old medical records. REVIEW OF SYSTEMS: Review of systems limited secondary to patient's agitation PAST MEDICAL & SURGICAL HISTORY: Bipolar disorder SOCIAL HISTORY: Denies acute alcohol or drug use PHYSICAL EXAM (Prior to examination, patient consented to physical exam, hands were washed and my usual and customary physical exam procedures followed) 1) GENERAL: poorly kept, agitated, yelling. 2) HEAD: Normocephalic 3) HEENT: Sclera anicteric. 4) NECK: Full range of motion. 5) LUNGS: breathing comfortably 6) HEART: no cyanotic discoloration. 7) ABDOMEN: No guarding, 8) MUSCULOSKELETAL: Moving all extremities, no obvious signs of trauma such as lacerations abrasions, no discoloration. 9) BACK: No visual abnormality. 10) SKIN: no visible rash 11) Psychiatric: Patient is oriented X 3, agitated, rapid speech, flight of ideas DIFFERENTIAL DIAGNOSIS: In no particular order including but not limited to acute oscar, psychosis, suicidal ideation, homicidal ideation (Garrett Romero) Constitutional: Initial Vital Signs Temperature (C) 36.4 C 01/25/18 11:39 Heart Rate 107 H 01/25/18 11:39 Respiratory Rate 20 01/25/18 11:39 Blood Pressure 145/87 H 01/25/18 11:39 O2 Sat (%) 98 01/25/18 11:39 O2 Delivery Mode Room Air Allergies/Adverse Reactions: nitrofurantoin macrocrystalline [From Macrobid] Allergy (Verified 12/14/17 00:29 ) Home Medications: Medication Instructions Recorded Albuterol [Proventil Inhaler HFA 2 puffs IH Q4HRS PRN #1 mdi 11/06/17 (*)] Benztropine Mesylate [Cogentin] 1 mg PO BID 7 Days tab 11/06/17 Gabapentin [Neurontin 300 MG (*)] 600 mg PO TID 7 Days cap 11/06/17 Perphenazine [Trilafon] 4 mg PO BID 7 Days tab 11/06/17 lamoTRIgine [LamICTAL 100 MG (*)] 100 mg PO DAILY 7 Days tab 11/06/17 traZODone [traZODONE 100MG (*)] 100 mg PO HS PRN 7 Days tab 11/06/17 Clonazepam 12/14/17 Hydroxyzine HCl 12/14/17 Klonopin 12/14/17 Seroquel 12/14/17 Strattera 12/14/17 Medical Decision Making ED Course/Re-evaluation: 12:07 p.m.: Patient acutely agitated, suspect acute psychosis and oscar. She will be given sedation as she threatening physical harm to anyone that attempts to touch her. I have reviewed her old medical records. I saw this patient independently based on established practice protocols. Care of patient under supervision of secondary supervising physician Dr Uri Mya with whom I discussed case. 430 pm: Care turned over to Dr Dias. Awaiting mental health evaluation. Patient calm at this time. (Garrett Romero Annie) Other Provider: Discharge summary from 11/07/2017 personally reviewed includes bipolar disorder with possible schizoaffective, substance abuse. Signed out to Dr. Dias at 3:15 p.m. With mental health evaluation pending. ( Uri May) Mental health team was unable to evaluate this patient, as she has been uncooperative throughout the day and night. She is intermittently sleeping but when awakened she becomes agitated, verbally abusive, and quite uncooperative. At 10:00 p.m. She is sleeping. Her urine toxicology screen is positive for amphetamine and has a history of methamphetamine use. Mental health team will hold off on her evaluation until the morning. Her care will be transferred to Dr. Ga at 11:00 p.m.. (Mercedez Dias) 6:40 a.m.- Patient has been stable during my shift. She is awaiting mental health evaluation this morning. It was thought that methamphetamine intoxication was contributing to her symptoms on her evaluation initially. The case will be signed out to the oncoming provider Dr. Abebe. (Brittney Ga) 7:50 a.m. the patient has been evaluated by Mental Health again. Now that she is more sober she denies suicidality. They will lift the hold. She has a follow-up with her therapist Dr. Gimenez tomorrow. (Grupo Abebe) - Data Points Laboratory Results: Laboratory Results 01/25/18 13:15 01/25/18 13:15 Medications Given: Discontinued Medications Haloperidol Lactate (Haldol Injection) 10 mg IM EDNOW ONE Stop: 01/25/18 12:09 Last Admin: 01/25/18 12:41 Dose: 10 mg Olanzapine (Zyprexa Injection) 10 mg IM EDNOW ONE Stop: 01/25/18 12:26 Last Admin: 01/25/18 12:42 Dose: 10 mg Departure - Departure Disposition: Home, Routine, Self-Care Clinical Impression: Manic behavior, Methamphetamine abuse Condition: Fair Instructions: Methamphetamine Abuse (ED), Bipolar Disorder (ED) Referrals: Lisa Gimenez MD [Medical Doctor] - 1 day without fail NONE *PRIMARY CARE P,. [Primary Care Provider] - As per Instructions
[2018-01-25] MEDS ORDERED: HALOPERIDOL LACT 5 MG/ML INJ IM ONE (12:08)
[2018-01-25] MEDS ORDERED: OLANZapine 10 MG/2 ML VIAL IM ONE (12:25)
[2018-01-25 14:02] LABS: PLATELET COUNT 260 10^3/uL (150-400)
[2018-01-26 08:24] VITALS: BP 109/69
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
--- NOTE | 2018-01-26 08:48 | ASMTTCLDSP ---
TLC Discharge Disposition Disposition: Answers: Discharge If Answers: Yes DISCHARGED: Patient/family given suicide hotline info & SAMHSA brochure? Disposition Notes: Notes: Pt stated commitment or ability to keep self safe, denied thoughts of self harm or harm to others. Pt expressed a desire to f/u with Dr. Gimenez at [facility] tomorrow for her scheduled appointment. Pt was given local hotline information and SAMHSA brochure After an Attempt and encouraged to follow up with Dr. Gimenez. Discharge Concerns/Recommendations: Notes: In consultation with [facility] ED physician, Grupo Abebe MD, Dr. Abebe concurred that pt no longer appears to meet 27-65 criteria requiring psychiatric hospitalization as pt does not appear to be an imminent risk of harm to self/others/gravely disabled due to a mental illness condition. Dr. Horne provided verbal order read back vacating M1 hold at 0750 hrs. Was patient given the Answers: Not applicable Inpatient Behavioral Health Prohibited Belongings List while in the ED? Psychiatrist vacating M1 Grpuo Abebe MD Hold: Date and time M1 hold 01/26/2018 07:50 AM vacated (time format is hh:mm): Type of Hold: Answers: M1/72-hour Hold Hold initiated by: Answers: Police Date Signed: 01/26/2018 08:47 AM Electronically Signed By:Alex Toribio
== END 2018-01-26 08:44 | disposition home or self-care (01) ==
DX: F30.9 Manic episode, unspecified (principal); F15.159 Other stimulant abuse with stimulant-induced psychotic disorder, unspecified; Z59.0 Homelessness
CPT/HCPCS: 90791; 96372; 99284; J1630; 80305; G0480

== ENCOUNTER 2018-02-03 18:15 | Emergency (ER) | payer OTHER ==
[~2018-02-03 18:15] MED LIST: NALOXONE HCL 2 MG/2 ML SYR IVP ONE
--- NOTE | 2018-02-03 18:23 | EDPHY ---
HPI/HX/ROS/PE/MDM Narrative: CHIEF COMPLAINT: Found down HISTORY OF PRESENT ILLNESS: This patient is a homeless 47 year old female with history of bipolar disorder and methamphetamine abuse arriving via EMS after being found down in an alley. The patient was initially unresponsive with no pulse. CPR was conducted briefly and EMS administered Narcan. Following this, the patient had return of circulation. She became responsive in transport and admitted to heroin and methamphetamine use today. EMS crews administered a second dose of Narcan in transport due to respiratory depression. Vitals were otherwise stable. BGL 80. 147/80. Currently, the patient is alert but not oriented and not answering questions appropriately. Further HPI difficult to obtain due to patient's altered mental status and possible polysubstance intoxication. REVIEW OF SYSTEMS: Unable to obtain secondary to patient presentation. PAST MEDICAL HISTORY: Bipolar disorder. Methamphetamine abuse. SOCIAL HISTORY: Transient. Single. Lives in [place]. VITAL SIGNS: Reviewed by me GENERAL: Well-developed, well-nourished, resting comfortably in no respiratory distress. HEENT: Atraumatic. Eyes: No icterus, no injection. Mouth: no trauma to tongue. moist mucous membranes. No erythema or lesions. Neck: supple with no adenopathy. LUNGS: Clear to auscultation bilaterally, no wheezes, rhonchi or rales. CARDIAC: Regular rate and rhythm, no rubs, murmurs or gallops. ABDOMEN: Soft, nontender, nondistended, bowel sounds normal. BACK: No CVA tenderness. EXTREMITIES: No trauma. No edema. Range of motion is normal throughout. NEURO: Alert, moving all extremities appropriately. SKIN: Warm and dry, no rash. PSYCHIATRIC: Alert, not answering questions appropriately. Portions of this note were transcribed by a medical transcriber. I personally performed a history, physical exam, medical decision making, and confirmed accuracy of information the transcribed note. ED Course: 18:14 [facility] at bedside. Patient is alert but not answering questions appropriately. She is tachycardic. No tongue trauma noted. 18:21 Administered 2 additional mg IV Narcan as patient stopped answering questions and began staring into space. Patient immediately began asking where her son is before the medication administration was completed. Alerted by PD that patient is under arrest. PD requests notification when patient has medical clearance. 20:45 Patient observed running through the emergency department with steady gait. She was detained by security and escorted back to her room. She is medically cleared at this point. 21:11 Reassessed. Patient is unwilling to answer questions. We will attempt UA tox screen. PD present. Patient discharged to PD custody. MDM: Patient was observed in the emergency department and improved clinically. Laboratory evaluation including hemoglobin hematocrit, electrolytes, and alcohol level are all normal. At 8:45 p.m., the patient attempted to elope from the emergency department. She was seen to be running with a stable gait through the emergency department and towards the front door. Patient was detained by security. Patient is currently on a police hold. At this point, patient will be discharged to law enforcement. Differential diagnoses for the patient's symptom complex was considered including but not limited to polysubstance abuse, psychiatric illness, electrolyte abnormalities, alcohol intoxication. - Data Points Laboratory Results: Laboratory Results 02/03/18 18:35 02/03/18 02/03/18 02/03/18 18:43 18:35 18:35 POC Hgb 13.9 gm/dL gm/dL (12.6-16.3) POC Hct 41 % % (38-47) POC Sodium 138 mEq/L mEq/L (135-145) Sodium 136 mEq/L mEq/L (135-145) POC Potassium 3.7 mEq/L mEq/L (3.3-5.0) Potassium 4.0 mEq/L mEq/L (3.3-5.0) POC Chloride 101 mEq/L mEq/L (97-110) Chloride 100 mEq/L mEq/L (97-110) Carbon Dioxide 23 mEq/l mEq/l (22-31) Anion Gap 13 mEq/L mEq/L (6-14) POC BUN 13 mg/dL mg/dL (7-23) BUN 14 mg/dL mg/dL (7-23) Creatinine 0.8 mg/dL mg/dL (0.6-1.0) POC Creatinine 0.9 mg/dL mg/dL (0.6-1.0) Estimated GFR > 60 Glucose 71 mg/dL mg/dL (70-100) POC Glucose 72 mg/dL mg/dL (70-100) Calcium 9.9 mg/dL mg/dL (8.5-10.4) Total Bilirubin 0.9 mg/dL mg/dL (0.1-1.4) Conjugated Bilirubin 0.2 mg/dL mg/dL (0.0-0.5) Unconjugated Bilirubin 0.7 mg/dL mg/dL (0.0-1.1) AST 24 IU/L IU/L (14-46) ALT 23 IU/L IU/L (9-52) Alkaline Phosphatase 77 IU/L IU/L (38-126) Troponin I < 0.012 ng/mL ng/mL (0.000-0.034) Total Protein 6.9 g/dL g/dL (6.3-8.2) Albumin 4.4 g/dL g/dL (3.5-5.0) Lipase 74 IU/L IU/L (23-300) Beta HCG, Qual NEGATIVE Ethyl Alcohol < 10 mg/dL mg/dL (0-10) Medications Given: Discontinued Medications Naloxone HCl (Narcan) 2 mg IVP EDNOW ONE Stop: 02/03/18 18:28 Last Admin: 02/03/18 18:29 Dose: 2 mg Point of Care Test Results: Chemistry 02/03/18 18:43 POC Sodium 138 mEq/L mEq/L (135-145) POC Potassium 3.7 mEq/L mEq/L (3.3-5.0) POC Chloride 101 mEq/L mEq/L (97-110) POC BUN 13 mg/dL mg/dL (7-23) POC Creatinine 0.9 mg/dL mg/dL (0.6-1.0) POC Glucose 72 mg/dL mg/dL (70-100) ISTAT H&H 02/03/18 18:43 POC Hgb 13.9 gm/dL gm/dL (12.6-16.3) POC Hct 41 % % (38-47) General Initial Vital Signs: Initial Vital Signs Temperature (C) 36.2 C 02/03/18 18:19 Heart Rate 110 H 02/03/18 18:19 Respiratory Rate 26 H 02/03/18 18:19 Blood Pressure 145/104 H 02/03/18 18:19 O2 Sat (%) 97 02/03/18 18:19 O2 Delivery Mode Room Air O2 (L/minute) 2 Allergies/Adverse Reactions: nitrofurantoin macrocrystalline [From Macrobid] Allergy (Verified 08/28/18 00:29 ) Home Medications: Medication Instructions Recorded Albuterol [Proventil Inhaler HFA 2 puffs IH Q4HRS PRN #1 mdi 11/06/17 (*)] Benztropine Mesylate [Cogentin] 1 mg PO BID 7 Days tab 11/06/17 Gabapentin [Neurontin 300 MG (*)] 600 mg PO TID 7 Days cap 11/06/17 Perphenazine [Trilafon] 4 mg PO BID 7 Days tab 11/06/17 lamoTRIgine [LamICTAL 100 MG (*)] 100 mg PO DAILY 7 Days tab 11/06/17 traZODone [traZODONE 100MG (*)] 100 mg PO HS PRN 7 Days tab 11/06/17 Clonazepam 12/14/17 Hydroxyzine HCl 12/14/17 Klonopin 12/14/17 Seroquel 12/14/17 Strattera 12/14/17 Departure - Departure Disposition: Law Enforcement/Court/Retirement Clinical Impression: Polysubstance abuse, Found unresponsive Condition: Good Instructions: Polysubstance Abuse (ED) Additional Instructions: The patient is medically cleared for law enforcement custody. Referrals: NONE *PRIMARY CARE P,. [Primary Care Provider] - As per Instructions Report Scribed for: Yolanda Maher Report Scribed by: Oneida Julio Date of Report: 02/03/18 Time of Report: 22:34
[2018-02-03] MEDS ORDERED: NALOXONE HCL 0.4 MG/ML INJ IVP ONE (18:27)
[2018-02-03 20:54] VITALS: BP 121/86
--- NOTE | 2018-02-03 23:06 | CPEKG ---
Test Reason : OPEN Blood Pressure : / mmHG Vent. Rate : 105 BPM Atrial Rate : 105 BPM P-R Int : 137 ms QRS Dur : 074 ms QT Int : 346 ms P-R-T Axes : 060 061 047 degrees QTc Int : 458 ms Sinus tachycardia Confirmed by Yolanda Maher ([id number]) on 02/03/2018 11:06:25 PM Referred By: Confirmed By:Yolanda Maher
== END 2018-02-03 21:38 ==
LOC: EDUNIT#
DX: F19.10 Other psychoactive substance abuse, uncomplicated (principal); F31.9 Bipolar disorder, unspecified
CPT/HCPCS: 93005; 96374; 99284; J2310; 82435-PO; 82565-PO; 82947-PO; 84132-PO; 84295-PO; 84520-PO; 85014-PO; G0480

== ENCOUNTER 2018-02-10 09:48 | Inpatient (IN) | payer OTHER ==
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
[2018-02-10] MEDS ORDERED: OLANZapine DISINTEGR 5 MG TAB PO ONE (10:04)
[2018-02-10 10:26] LABS: PLATELET COUNT 304 10^3/uL (150-400)
[2018-02-10] MEDS ORDERED: LORazepam 1 MG TAB PO ONE (11:14)
[2018-02-10] MEDS ORDERED: IBUPROFEN 600 MG TAB PO ONE (11:41)
[2018-02-10] MEDS ORDERED: OLANZapine 10 MG/2 ML VIAL IM ONE (17:35)
[2018-02-10] MEDS ORDERED: OLANZapine 10 MG/2 ML VIAL ONE (17:35)
[2018-02-10] MEDS ORDERED: LORazepam 2 MG/ML INJ IM ONE (17:35)
[2018-02-10] MEDS ORDERED: LORazepam 2 MG/ML INJ ONE (17:36)
[2018-02-10] MEDS ORDERED: OLANZapine DISINTEGR 10 MG TAB ONE (20:48)
[2018-02-10] MEDS ORDERED: OLANZapine DISINTEGR 10 MG TAB PO ONE (20:53)
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
--- NOTE | 2018-02-10 21:24 | ASMTTCLDSP ---
[facility] Discharge Disposition Disposition: Answers: Admit Discharge Concerns/Recommendations: Notes: In consultation with [facility] ED physician, Mercedez Dias MD and on-call psychiatrist, Jessica Kiser MD, both concurred that pt appears to meet 27-65 criteria requiring psychiatric hospitalization as pt appears to be gravely disabled due to a mental illness condition. Was patient given the Answers: Yes Inpatient [facility] Prohibited Belongings List while in the ED? For inpatient Jessica Kiser MD admission, the following psychiatrist agreed to accept patient for admission to [facility]): Date Signed: 02/10/2018 09:23 PM Electronically Signed By:Katy Moore
[2018-02-10] MEDS ORDERED: LORazepam 0.5 MG TAB PO PRN (22:24)
[2018-02-10] MEDS ORDERED: MAGNESIUM HYDROXIDE 30 ML UDCUP PO PRN (22:24)
[2018-02-10] MEDS ORDERED: MAG HYDROX/AL HYDROX/SIMETH 30 ML UDCUP PO PRN (22:24)
[2018-02-11] MEDS: NICOTINE POLACRILEX 2 MG GUM B PRN ×2 (06:21→16:50)
[2018-02-11] MEDS: OLANZapine DISINTEGR 10 MG TAB PO PRN ×2 (08:19→15:57)
[2018-02-11] MEDS ORDERED: LORazepam 1 MG TAB PO ONE (08:37)
[2018-02-11] MEDS: NICOTINE 21 MG/24 HR PATCH TD SCH (09:34)
[2018-02-11] MEDS: ACETAMINOPHEN 325 MG TAB PO PRN (09:38)
[2018-02-11] MEDS ORDERED: LORazepam 0.5 MG TAB PO PRN (10:21)
[2018-02-11] MEDS: CEPACOL LOZENGE PO PRN ×2 (10:32→16:49)
[2018-02-11] MEDS ORDERED: PALIPERIDONE 3 MG TAB.ER PO ONE (11:00)
--- NOTE | 2018-02-11 13:02 | ASMTBHMTP ---
Master Treatment Plan Master Treatment Plan Answers: Mood Instability with for: Psychosis Date: 02/11/2018 Diagnosis on Admission: Bipolar I Disorder, severe 296.43 Expected length of stay: 3-5 days Reason for admission: Notes: Per [facility] evaluation - PT. is a 47 year old unmarried, homeless, unemployed, female with known history of bipolar I disorder, methamphetamine use disorder, cocaine use disorder, brought in by [facility] and [facility] on M1 hold which noted: Officers were dispatched to a female rambling in [facility] near [address] [place] [address]. 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 Pt is an active client of [facility] under the psychiatric care of Dr. Gimenez. Pt. denied any suicidal/homicidal ideation/intent/plans to harm self/others. Patient's stated presenting problems: Notes: No idea why I was brought in here. Been dealing with God. Has a lot to do with God. Patient's goals for treatment: Notes: Medication management and pain management Patient's strengths: Notes: Compassionate, tough, and just enough Identify supports outside of hospital: Notes: No one else Discharge criteria: Notes: Patient will demonstrate more stable mood by discharge. Initial disposition plan/considerations: Notes: Go South, East, or West, or maybe across the street. Master Treatment Plan Required Signatures Psychiatrist signature: Answers: ROGERS BurnsP: RN on-shift signature: Answers: RN: Patient signature: Answers: Patient: Date Signed: 02/11/2018 01:01 PM Electronically Signed By:Karyn Iniguez
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
[2018-02-11] MEDS ORDERED: BIOTENE DRY MOUTH ORAL RINSE 237 ML BTL MM PRN (13:12)
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
[2018-02-11] MEDS: LIDOCAINE 2% VISCOUS 15 ML UDCUP PO PRN ×2 (14:09→19:45)
--- NOTE | 2018-02-11 14:43 | ASMTCMCOM ---
CM Note CM Note Notes: Pt and CC completed MTP, pt refused to sign, MTP placed in chart. Pt. refused to sign MTP, stating she does not have a cocaine or meth issues, just mental health issues. At the beginning of meeting pt stated she was in pain in her lower back and mouth. Pt. stated she couldn't talk long due to her pain. Staff report pt. sleeping 7.5 hours, demanding medication and being verbally abusive with staff. Date Signed: 02/11/2018 02:41 PM Electronically Signed By:Karyn Iniguez
[2018-02-11] MEDS: LORazepam 0.5 MG TAB PO PRN (15:56)
[2018-02-11] MEDS: CLOTRIMAZOLE/BETAMET DIPROP 15 GM CRTUBE TP SCH ×2 (16:00→21:14)
[2018-02-12] MEDS: LORazepam 0.5 MG TAB PO PRN ×3 (07:01→19:45)
[2018-02-12] MEDS: ACETAMINOPHEN 325 MG TAB PO PRN (07:01)
[2018-02-12] MEDS: CEPACOL LOZENGE PO PRN ×3 (07:02→19:46)
[2018-02-12] MEDS: NICOTINE POLACRILEX 2 MG GUM B PRN ×5 (07:32→19:46)
[2018-02-12] MEDS: NICOTINE 21 MG/24 HR PATCH TD SCH (07:32)
[2018-02-12] MEDS: PALIPERIDONE 3 MG TAB.ER PO SCH (07:32)
[2018-02-12] MEDS: LIDOCAINE 2% VISCOUS 15 ML UDCUP PO PRN ×2 (07:36→14:58)
[2018-02-12] MEDS: OLANZapine DISINTEGR 10 MG TAB PO PRN ×3 (07:46→17:38)
--- NOTE | 2018-02-12 09:52 | PDMN ---
Medical Necessity Medical necessity: Pt meets IP criteria per & [facility]IN B-[id number]; est los >2 mn for eval/tx of bipolar disorder w/severe manic episode, psychotic features & stimulant withdrawal; pt gravely disabled & on M1 hold; requiring further monitoring, safety, crisis stabilization & med management; hx homelessness, amphetamine abuse; per H&P & order 02/10/18
[2018-02-12] MEDS: CLOTRIMAZOLE/BETAMET DIPROP 15 GM CRTUBE TP SCH ×2 (13:19→20:15)
--- NOTE | 2018-02-12 15:22 | ASMTBHDC ---
Notes Note: Notes: Pt. stated she didn't want to speak with CC until she was given her correct medications. Pt. later approached CC to meet, but then decided to eat lunch first. CC attempted to meet with pt later, but she was sleeping. spoke with the pt. Pt requested to be discharged. Pt. stated "I am perfectly able to pickup the phone and call my pillowcase folder". Staff report pt. sleeping 11 hours last night and taking naps today. Staff report pt. being medication compliant. Pt. was observed telling staff they aren't helping her. Date Signed: 02/12/2018 03:19 PM Electronically Signed By:Karyn Iniguez
--- NOTE | 2018-02-12 16:14 | SOAPPROG ---
SOAP Progress Note Assessment/Plan: Assessment: 47 yo woman with h/o opioid dependence, methamphetamine dependence, amphetamine dependence, cannabis dependence, alcohol dependence, benzodiazepine dependence and bipolar disorder. She was BIB [place] [employer] to [facility] after being found lying on ground talking incoherently. Once patient was seen in ED, her clinical condition improved rapidly. According to Dr. Josef Crouch's note, she was talking in "complete sentences and coherently" within a couple hours of her admission to ED. PLAN: 02/12/18 16:13 1. This MD reviewed ED notes and medical records from patient's previous 4 evaluations in [facility]: 12/14/17, 01/25/18, 02/03/18 & 02/10/18. On each occasion, patient was noted to have sxs of psychosis and/or AMS. She was talking "incoherently" or "not making sense" or expressing paranoid delusions. She was noted to be intoxicated on each of these ED visits. Her drug screen was positive for amphetamine on 12/14, 01/25 & 02/10. On 02/03 no UDS was done, but patient was discovered unresponsive in field and administered Narcan with immediate positive results. She admitted to using meth and heroin on 02/03. She also admitted to using meth on all her previous ED visits. 2. Today, patient's condition has improved since her evaluation in ED. She is able to perform ADL's, she is able to toilet, dress, and feed herself. She is able to change her clothes and make requests for food, snacks, PRN meds appropriately. She was able to explain her medical problems to the hospitalist and to the psychiatrist. Her chief complaint is congestion and "too much mucus. " She requested a decongestant and expectorant. She is logical, coherent and organized. Patient is extremely irritable and unhappy with her care in hospital. She says she is able to "take better care of myself" when she is not in hospital. She insisted that she does not need psych meds, only "my stimulant. " She tells MD that she needs her Vyvanse b/c "I have ADHD." She says she didn' t like being "cut off" from coffee this morning b/c she was "talking loud" and becoming more agitated and irritable. She says coffee doesn't have that effect on her b/c "I have ADHD," she claims coffee and her Vyvanse "calm me down." MD explained that psychostimulants can sometimes worsen mood lability and increase irritability. Patient says "that's not what happens to me." 3. Patient states that she would prefer to get her care from Dr. Gimenez and her providers at [facility]. She insists that she doesn't need to take Invega, even though she consented to take it yesterday when it was recommended by PMHNP, Jeremiah Daugherty. Patient currently denies AH/VH, paranoid delusions, IOR, bizarre thoughts, intrusive thoughts, racing thoughts, SI/HI, anxiety, panic. 4. Patient requests to leave when her [facility] expires tomorrow AM. MD explains that if patient leave on Wednesday, CC will not be able to contact [facility] on her behalf and schedule an OP appointment with her CM or Dr. Gimenez. Patient says, "that' s alright, I can do it myself." She told MD, "I'm capable of picking up the phone and making my own appointment." Patient states her previous briefcase sewer is "on maternity leave" but assures MD that "they've already assigned me a new one, I just have to find out who it is." Patient says she will be able to do that on Wednesday, but "I don't need to be here for that." 5. MD counseled patient about the risks and potential adverse effects of continuing to use illicit and recreational drugs. She says she is aware of the risk of drug interactions from combining psych meds and meth, opiates, THC, alcohol and benzos. She knows that these drug interactions can lead to serious complications, including possible respiratory depression, coma and . She also knows that using mood altering drugs will likely worsen her psych sxs, including her irritability, depression, psychosis, paranoid delusions as well as impair her ability to make good decisions and use good judgment. She acknowledges her understanding of these risks. MD suggests she talk to CAC at [facility] and start treatment for polysubstance dependence. She says she will think about it. 6. Patient is requesting to discharge tomorrow and says she does not want to stay in hospital voluntarily to receive any further treatment. She does not want any further assistance to arrange follow up outpatient treatment. 7. Plan to d/c tomorrow once [facility] expires. Subjective: Today, patient's condition has improved since her evaluation in ED. She is able to perform ADL's, she is able to toilet, dress, and feed herself. She is able to change her clothes and make requests for food, snacks, PRN meds appropriately. She was able to explain her medical problems to the hospitalist and to the psychiatrist. Her chief complaint is congestion and "too much mucus. " She requested a decongestant and expectorant. She is logical, coherent and organized. Patient is extremely irritable and unhappy with her care in hospital. She says she is able to "take better care of myself" when she is not in hospital. She insisted that she does not need psych meds, only "my stimulant. " She tells MD that she needs her Vyvanse b/c "I have ADHD." She says she didn' t like being "cut off" from coffee this morning b/c she was "talking loud" and becoming more agitated and irritable. She says coffee doesn't have that effect on her b/c "I have ADHD," she claims coffee and her Vyvanse "calm me down." MD explained that psychostimulants can sometimes worsen mood lability and increase irritability. Patient says "that's not what happens to me." Objective: Vital Signs Temp Pulse Resp BP Pulse Ox 36.5 C 96 20 94/55 L 99 02/10/18 21:05 02/11/18 06:00 02/11/18 06:00 02/11/18 06:00 02/11/18 06:00 MSE: Affect: Irritable Mood: "Fine" TP: Goal-directed TC: Denies any SI/HI, denies paranoid delusions Perception: Denies any AH/VH Insight/Judgment: Poor a/e/b continued drug use despite negative consequences, patient had to be given Narcan in field on 02/03/18 to revive her - Time Spent With Patient Time Spent With Patient: 25" - Pending Discharge Pending Discharge Within 24 Hours: Yes Pending Discharge Date: 02/13/18 (D/C tomorrow AM when [facility] expires) Pending Discharge Time: 11:00 ICD10 Worksheet Patient Problems: Problems Problem Status Onset Acute psychosis Acute Bipolar disorder, current episode manic severe with psychotic features Acute Methamphetamine abuse Acute Polysubstance abuse Acute Substance induced mood disorder Acute Substance-induced psychotic disorder Acute Acute urinary retention Acute Dental infection Acute Dyspnea Acute ESBL (extended spectrum beta-lactamase) producing bacteria infection Acute Manic behavior Acute Pyelonephritis Acute Unspecified mood [affective] disorder Acute Urinary tract infection Acute Vaginal foreign body Acute - ICD10 Problem Qualifiers (1) Substance induced mood disorder (2) Substance-induced psychotic disorder
[2018-02-12] MEDS: guaiFENesin 600 MG TAB.ER PO SCH (19:45)
[2018-02-12 21:26] VITALS: BP 112/76
[2018-02-13] MEDS: PALIPERIDONE 3 MG TAB.ER PO SCH (09:02)
[2018-02-13] MEDS: guaiFENesin 600 MG TAB.ER PO SCH (09:02)
[2018-02-13] MEDS: LIDOCAINE 2% VISCOUS 15 ML UDCUP PO PRN (09:56)
--- NOTE | 2018-02-13 19:11 | BDS ---
REASON FOR ADMISSION: From the ED note, on 02/10/2018, the patient presented to the ED by EMS, and was seen after being placed on an M1 hold by the [employer] for being acutely psychotic. She was found in a parking lot. The [employer] reports that the patient was found lying by a holt, and was she was reportedly awake and "talking incoherently." The [employer] then placed her on an M1 hold for grave disability, and transported her to the [facility] ED. The patient was unable to provide any information when she initially presented to the emergency department because she was mumbling incoherently, not able to talk in complete sentences. After several hours of being in the emergency department, she became more coherent, she was talking logically, coherently, and able to complete sentences. She was given Zyprexa 10 mg, and Ativan 2 mg IM. Her speech became much more linear, goal directed, and made more sense. The patient was then transported to the inpatient behavioral services unit on . ADMITTING DIAGNOSES: 1. Bipolar disorder; current episode manic, severe, with psychotic features. 2. Acute psychosis. 3. Amphetamine abuse. 4. Stimulant-induced psychosis. 5. Stimulant withdrawal. 6. Homelessness. ADMITTING PHYSICAL EXAMINATION: Done by Dr. Lars Forrest. Please see his H and P for full details. PAST MEDICAL HISTORY: Significant for pyelonephritis, chronic interstitial cystitis, with repeat urinary tract infections, and polysubstance dependence. Upon physical examination, the patient did complain of kidney pain, dysuria, and mouth pain. Dr. Forrest noted the patient had cheilitis of unclear etiology. Patient had a normal B12. No diabetes mellitus. He said that it might be related to seborrheic dermatitis. Dr. Forrest noted that, even though this condition would best be treated with a topical antifungal, the patient has considerable inflammation, and he recommended treating with Lotrisone and Biotene mouth rinse. Those are the only medical problems that the patient had on admission. ADMISSION LABS: On 02/10/2018, white cell count was 10.02, hemoglobin 14.7, hematocrit 42.9, platelet count 304. The patient had a sodium of 139, potassium was 4.2, chloride 105, BUN 12, creatinine 0.6, glucose was 92. Hemoglobin A1c was 5.0. Total bilirubin 0.5, AST 52, ALT 28, alkaline phosphatase 123, albumin was 5.8. Cholesterol 205, triglycerides 106, LDL was 91, VLDL was 21, HDL was 93. Beta hCG was negative. Urine drug screen was positive for amphetamine and for benzodiazepine. Her salicylate and acetaminophen levels were both undetected. All other drugs of abuse were negative. Ethyl alcohol level was less than 10. HOSPITAL COURSE: On day 2 of her hospitalization, this MD met with the patient. Her condition was significantly improved since her evaluation in the emergency department. She was linear, coherent, much calmer, and less agitated , although still irritable at times, very demanding of the staff. She was able to perform her ADLs, was able to toilet, dress, and feed herself. She changed her clothes, washed her clothes. She made requests of the staff for food, snacks, and p.r.n. medications appropriately. She was able to explain her medical problems to the hospitalist and to the psychiatrist. When the psychiatrist saw her, her chief complaint was congestion and "too much mucus." She denied any psychotic symptoms, including denying auditory and visual hallucinations, paranoid delusions, ideas of reference, bizarre thoughts. She denied oscar. She denied feeling depressed, anxious, panicky, worthless, hopeless, helpless. She denied having any thoughts, plans, or intents to hurt herself or anyone else. She did not exhibit any symptoms of oscar. She did not have increase in goal-directed activity, decreased need for sleep, racing thoughts, pressured speech, elevated or elated mood, or grandiose delusions. When MD spoke with her on 02/12/2018, she was logical, coherent and organized. Although she was extremely unhappy with her care in the hospital, she said she was able to "take better care of myself" when she is not in the hospital. She insisted that she did not need any psychiatric medications. She only wanted, "my Stimulant." She told the MD that she needs her Vyvanse because, "I have ADHD." Patient said that she was upset about being "cut off" from coffee this morning, after drinking 10 cups, because she was talking loud and becoming more agitated and irritable. She says coffee does not have that effect on her because, "I have ADHD." She claims that coffee and Vyvanse "calm me down." MD explained that psychostimulants can sometimes worsen the patient's mood lability and increase irritability. Patient says, "That's not what happens to me." Patient told this MD that she would prefer to get her care from Dr. Gimenez and her providers at [facility], rather than staying in the hospital. She wanted to know when her mental health hold . When the MD explained that it was up on the morning of 02/13/2018, she insisted that she wanted to leave. MD encouraged the patient to stay voluntarily in order to be able to continue to monitor her on her new medication, Invega. also discussed with the patient the recommendation by the [facility] RHEUMATOLOGY NURSE, Jeremiah Ivory, that the patient start taking Invega Sustenna, and that she would need to have 2 loading doses of that medication before she could be on a monthly schedule, that it might make compliance better and easier for her. The patient said that she would continue to take p.o. Invega, but that she was not interested in staying in the hospital to get the shot. She said she would follow up with Dr. Gimenez at [facility], and discuss the option of being on a monthly injection at her next appointment. The patient requested to leave the hospital when the mental health hold expires. explained to her that if she left on a Wednesday, the customer care consultant would not be able to contact [facility] on her behalf and schedule any outpatient appointments with her case briefer or with Dr. Gimenez. The patient says, "That's alright, I can do it myself." She told MD, "I'm capable of picking up the phone and making my own appointments." The patient states that her previous case briefer at [facility] is "on maternity leave," but she assured the MD that, "They've already assigned me a new one. I just have to find out who it is." The patient says that she will be able to do that on Wednesday morning and says, "I don't need to be here for that." This MD counseled the patient about the risks and potential adverse affects of continuing to use illicit and recreational drugs. She says she is aware of the risk and the potential for drug interactions from combining psychiatric medications, meth, opiates, cannabis, alcohol, and benzodiazepines. She knows that these drug interactions can lead to serious complications, including possible respiratory depression, and . She also knows that using mood- altering drugs will likely worsen her psychiatric symptoms, including making her irritability, depression, psychosis, paranoid delusions, worse, as well as impairing her ability to make good decisions and use good judgment. She acknowledges her understanding of these risks. MD suggests she talk to the certified addictions counselor at [facility] and start treatment for polysubstance dependence. She says she will think about it. The patient has requested discharge on Wednesday morning, and says she does not want to stay in the hospital voluntarily to receive any further treatment. She does not want any further assistance to arrange followup or outpatient appointments. CONDITION AT DISCHARGE: At time of discharge, patient was stable. Her affect was euthymic and appropriate. She denied any thoughts of suicide. She told MD on the day prior to her discharge, "Fuck no, I don't want to kill myself." She had no psychotic symptoms, and there were no manic symptoms present. She was compliant with medications, and stated she was willing to go to [facility] and see her outpatient psychiatrist, Dr. Gimenez, to have her medications adjusted as needed. She also stated that she was willing to follow up with her case briefer at [facility] for any additional services. DISCHARGE MEDICATIONS: The patient was discharged on guaifenesin 600 mg p.o. twice daily. Clotrimazole/betamethasone; she was given 1 tube; she was supposed to apply it twice a day. She was also given Invega 6 mg p.o. daily, 30 tabs, no refills. DISCHARGE DIAGNOSES: 1. Substance-induced mood disorder. 2. Substance-induced psychosis. 3. Bipolar disorder by history, not in evidence during this admission. 4. Amphetamine use disorder, severe. 5. Opiate use disorder, severe. 6. Cannabis use disorder, severe. 7. Alcohol use disorder, unknown severity. 8. Benzodiazepine use disorder, unknown severity. 9. Homeless, unemployed, chronic polysubstance dependence, recently almost overdosed on heroin on 02/03/2018, noncompliance, nonadherence to treatment, not taking medications, not seeking followup, not keeping followup appointments , not contacting [facility], lack of social support, recent legal issues. Has a court hearing on 02/23. DISPOSITION: The patient left the hospital with prescriptions for new medications to treat cheilitis, and for her acute psychotic episode which was likely substance induced. The patient does not have followup appointments because she refused to stay voluntarily until Wednesday morning when the case management coordinator could contact her [facility] case briefer. She states that she is, "capable of picking up the phone and making those appointments myself." She agrees to contact [facility] and schedule a followup appoint with Dr. Gimenez, and also to see her new case briefer. strongly recommended the patient seek individual and group therapy for polysubstance dependence, including talking with a certified addictions counselor. She said she would "think about it." LEGAL COURSE: The patient's legal status was changed to Voluntary upon the expiration of her M1 Hold prior to discharge. /[id number]/MODL MTDD
[2018-02-14] MEDS ORDERED: PALIPERIDONE PALMITATE 234 MG/1.5 ML SYR IM ONE (09:00)
[2018-02-17] MEDS ORDERED: PALIPERIDONE PALMITATE 156 MG/ML SYR IM ONE (09:00)
== END 2018-02-13 10:05 | disposition home or self-care (01) | DRG 897 ==
LOC: EDUNIT# → BBEH 21:30
PROVIDERS: ADMIT Psychiatry & Neurology Behavioral Neurology & Neuropsychiatry; ATTEND Psychiatry & Neurology Behavioral Neurology & Neuropsychiatry
DX: F15.259 Other stimulant dependence with stimulant-induced psychotic disorder, unspecified (principal); F11.259 Opioid dependence with opioid-induced psychotic disorder, unspecified; Z59.0 Homelessness; F31.9 Bipolar disorder, unspecified; F12.259 Cannabis dependence with psychotic disorder, unspecified; R30.0 Dysuria; F13.90 Sedative, hypnotic, or anxiolytic use, unspecified, uncomplicated; K13.0 Diseases of lips; Z72.89 Other problems related to lifestyle; Z91.19 Patient's noncompliance with other medical treatment and regimen; Z91.14 Patient's other noncompliance with medication regimen
CPT/HCPCS: 80305; 82607-90; G0480; J2060

== ENCOUNTER 2018-02-27 11:30 | Emergency (ER) | payer OTHER ==
--- NOTE | 2018-02-27 11:36 | EDPHY ---
H & P - Personal History Tetanus Vaccine Date: <10yrs - Medical/Surgical History Hx Asthma: No Hx Chronic Respiratory Disease: No Hx Diabetes: No Hx Cardiac Disease: No Hx Renal Disease: No Hx Cirrhosis: No Hx Alcoholism: No Hx HIV/AIDS: No Hx Splenectomy or Spleen Trauma: No Other PMH: tonsilectomy, Cystitis, CHRONIC PAIN, ADHD, BIPOLAR, c section, + ESBL , schizophrenia. - Social History Smoking Status: Current every day smoker Time Seen by Provider: 02/27/18 11:35 Constitutional: Initial Vital Signs Temperature (C) 36.7 C 02/27/18 11:48 Heart Rate 91 02/27/18 11:48 Respiratory Rate 18 02/27/18 11:48 Blood Pressure 145/108 H 02/27/18 11:48 O2 Sat (%) 98 02/27/18 11:48 O2 Delivery Mode Room Air Allergies/Adverse Reactions: nitrofurantoin macrocrystalline [From Macrobid] Allergy (Unknown, Verified 02/11 17:19) Hives Home Medications: Medication Instructions Recorded Clotrimazole/Betamet Diprop 1 celia TP BID #1 tube 02/12/18 [Lotrisone Cream (*)] Paliperidone [Invega 3mg ER (*)] 6 mg PO DAILY #30 tab.er 02/12/18 guaiFENesin [Mucinex 600 MG (*)] 600 mg PO BID #30 tab.er 02/12/18 Medical Decision Making ED Course/Re-evaluation: CHIEF COMPLAINT: Psychiatric evaluation HISTORY OF PRESENT ILLNESS: The patient is a 48 y/o female arriving via EMS with police custody, placed on an M1 hold. The patient was recently discharged from [address] [place] [address]. Today [place] Police were called to a local business after she was found trespassing and talking to herself. She states she is living with her "dope bhagat in a motel". She denies suicidal or homicidal ideations. No headache, chest pain, shortness of breath, abdominal pain, urinary or bowel complaints, numbness, paresthesias. REVIEW OF SYSTEMS: A comprehensive 10 system review of systems is otherwise negative aside from elements mentioned in the history of present illness and medical decision making. PHYSICAL EXAM: General Appearance: Alert, well hydrated, appropriate, and non-toxic appearing. Head: Atraumatic without scalp tenderness or obvious injury Eyes: Pupils equal, round, reactive to light and accommodation, EOMI, no trauma , no injection. Ears: Clear bilaterally, no perforation, normal landmarks Nose: Atraumatic, no rhinorrhea, clear. Throat: There is no erythema or exudates, no lesions, normal tonsils, mucus membranes moist. Neck: Supple, 2+ carotid upstroke, nontender, no lymphadenopathy. Respiratory: No retractions, no distress, no wheezes, and no accessory muscle use. Lungs are clear to auscultation bilaterally. Cardiovascular: Regular rate and rhythm, no murmurs, rubs, or gallops. Bilateral carotid, radial, dorsalis pedis, and posterior tibial pulses intact. Good capillary refill all extremities. Gastrointestinal: Abdomen is soft, nontender, non-distended, no masses, no rebound, no guarding, no peritoneal signs. Musculoskeletal: Normal active ROM of all extremities, atraumatic. Neurological: Alert, appropriate, and interactive. The patient has normal DTRs and non-focal cranial nerves, motor, sensory, and cerebellar exam. Skin: No rashes, good turgor, no nodules on palpation. Psych: Disorganized and tangential speech, word confabulation Past medical history: Cystitis, chronic pain, bipolar disorder, schizophrenia Past surgical history: Tonsillectomy Family history: Denies Social history: Transient, single, not employed DIFFERENTIAL DIAGNOSIS: The differential diagnosis for the patient's depression included but was not limited to functional and major depression, situational depression, medication side effect, drugs, and alcohol abuse. MEDICAL DECISION MAKING: The patient is a 48 y/o female arriving via EMS with police custody, placed on an M1 hold after she was found trespassing and talking to herself. On my exam she has disorganized and tangential speech with word confabulation. Patient is in no acute distress and is hemodynamically stable. Psychiatric labs ordered. We are awaiting psychiatric team's evaluation. Patient has known history of psychiatric disorders and is here for evaluation. (Kenroy Ahuja) I took over care of this patient at 3:00 p.m.. This patient is on an M1 hold for schizophrenia and psychosis. She is awaiting evaluation. 6:30 p.m., the patient has been seen and evaluated by Behavioral Health. She will be [facility] back [facility] by [facility]. She is well tied in with [facility]. Follow-up has been arranged for her. Return to emergency department precautions discussed. All of her questions were answered. She was discharged in good condition. (Lavonne Fallon) - Data Points Laboratory Results: Laboratory Results 02/27/18 13:25 02/27/18 13:25 Medications Given: Discontinued Medications Olanzapine (Olanzapine) 5 mg PO ONCE ONE Stop: 02/27/18 12:16 Last Admin: 02/27/18 12:41 Dose: 5 mg Olanzapine (Olanzapine) 5 mg PO ONCE ONE Stop: 02/27/18 13:24 Last Admin: 02/27/18 12:45 Dose: 5 mg Departure - Departure Disposition: Home, Routine, Self-Care Clinical Impression: Schizophrenia, Psychosis Condition: Good Instructions: Schizophrenia (ED) Additional Instructions: Read and follow provided instructions. Follow-up with [facility] as discussed. Take medication as prescribed. Return to the emergency department for worsening symptoms or other serious concerns. Referrals: [facility],. [Clinic] - As per Instructions Report Scribed for: Kenroy Ahuja Report Scribed by: Thania Seymour Date of Report: 02/27/18 Time of Report: 11:46
[2018-02-27] MEDS ORDERED: OLANZapine 5 MG TAB PO ONE ×2 (12:15→13:23)
[2018-02-27] MEDS ORDERED: HALOPERIDOL LACT 5 MG/ML INJ ONE (12:25)
[2018-02-27] MEDS ORDERED: OLANZapine 5 MG TAB ONE (12:26)
[2018-02-27 13:43] LABS: PLATELET COUNT 279 10^3/uL (150-400)
--- NOTE | 2018-02-27 17:13 | ASMTTCLDSP ---
TLC Discharge Disposition Disposition: Answers: Discharge If Answers: Yes DISCHARGED: Patient/family given suicide hotline info & SAMHSA brochure? Disposition Notes: Notes: In consultation with on-call psychiatrist, Jose Salinas MD, Dr. Salinas confirmed that the patient does not appear to meet 27-65 criteria requiring psychiatric hospitalization as patient does not appear to be an imminent risk of harm to self/others/gravely disabled due to a mental illness condition. Dr. Salinas provided telephone order read back vacating M1 hold at 16:30 hrs. Discharge Concerns/Recommendations: Notes: The patient was given local hotline information and SAMSHA brochure after an attempt and encouraged to follow up with her providers at [facility]. Was patient given the Answers: Not applicable Inpatient Behavioral Health Prohibited Belongings List while in the ED? Date and time M1 hold 02/27/2018 04:30 PM vacated (time format is hh:mm): Type of Hold: Answers: M1/72-hour Hold Hold initiated by: Answers: Police Date Signed: 02/27/2018 05:12 PM Electronically Signed By:Apple Blanca
[2018-02-27 17:22] VITALS: BP 125/85
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
== END 2018-02-27 19:05 | disposition home or self-care (01) ==
DX: F20.9 Schizophrenia, unspecified (principal); F29 Unspecified psychosis not due to a substance or known physiological condition; F17.200 Nicotine dependence, unspecified, uncomplicated
CPT/HCPCS: 99284; J1630; 80305; G0480

== ENCOUNTER 2018-03-06 18:19 | Emergency (ER) | payer MEDICAID, OTHER ==
--- NOTE | 2018-03-06 18:19 | EDPHY ---
HPI/HX/ROS/PE/MDM Narrative: CHIEF COMPLAINT: HPI: The patient is a 49 y/o female with a history of illicit drug abuse and schizophrenia arriving via EMS after being found down behind [employer]. Per EMS, the patient was sleeping in the snow behind [employer]. She admitted to heroin use today and has a history of heroin and meth use. Her BGL in the field was 90. No headache, chest pain, shortness of breath, abdominal pain, urinary or bowel complaints, numbness, paresthesias. REVIEW OF SYSTEMS: Aside from elements discussed in the HPI, a comprehensive 10 system review of systems is otherwise negative. PMH: Cystitis, chronic pain, bipolar disorder, schizophrenia, tonsillectomy SOCIAL HISTORY: Transient, single, not employed PHYSICAL EXAM: General: Patient is intermittently nodding off, in no acute distress. ENT: Eyes are normal to inspection. ENT inspection normal. Neck: Normal inspection. Full range of motion. Respiratory: No respiratory distress. Breath sounds normal bilaterally. Cardiovascular: Regular rate and rhythm. Strong peripheral pulses. Normal cap refill. Abdomen: The abdomen is nontender to palpation. There are no peritoneal signs. There are normal bowel sounds. Back: Normal to inspection. No tenderness to palpation. Skin: Normal color. No rash. Warm and dry. Extremities: Normal appearance. Full range of motion. Neuro: Oriented x3. Normal motor function. Normal sensory function. (Erick Montero) ED Course: 1818: I met EMS upon arrival. Patient is intermittently nodding off but is not in any respiratory distress. Her temperature is 36.1 degrees. 1928: Patient is cursing at the nursing staff; 10mg IV Haldol administered. 2129: Patient sleeping comfortably. On monitor. (Erick Montero) 2335: Patient is up ambulatory throughout the emergency room. She answers my questions appropriately. She has, cooperative. She is not screaming. She received 10 mg of Haldol earlier. She has been sleeping most the time this evening but now awake alert, ambulatory, and cooperative. Safe for discharge. She would like [facility] to [facility]. (Shashank Ng) - Data Points Medications Given: Discontinued Medications Haloperidol Lactate (Haldol Injection) 10 mg IVP EDNOW ONE Stop: 03/06/18 19:35 Last Admin: 03/06/18 19:35 Dose: 10 mg General Initial Vital Signs: Initial Vital Signs Temperature (C) 36.1 C 03/06/18 18:24 Heart Rate 98 03/06/18 18:24 Respiratory Rate 16 03/06/18 18:24 Blood Pressure 147/108 H 03/06/18 18:24 O2 Sat (%) 99 03/06/18 18:24 O2 Delivery Mode Room Air Allergies/Adverse Reactions: nitrofurantoin macrocrystalline [From Macrobid] Allergy (Unknown, Verified 02/11 17:19) Hives Home Medications: Medication Instructions Recorded Clotrimazole/Betamet Diprop 1 celia TP BID #1 tube 02/12/18 [Lotrisone Cream (*)] Paliperidone [Invega 3mg ER (*)] 6 mg PO DAILY #30 tab.er 02/12/18 guaiFENesin [Mucinex 600 MG (*)] 600 mg PO BID #30 tab.er 02/12/18 Departure - Departure Disposition: Home, Routine, Self-Care Clinical Impression: Bipolar disease, manic Psychosis Qualifiers: Psychosis type: other Qualified Code(s): F28 - Other psychotic disorder not due to a substance or known physiological condition Condition: Good Instructions: Psychotic Disorder (ED) Referrals: NONE *PRIMARY CARE P,. [Primary Care Provider] - As per Instructions Report Scribed for: Erick Montero Report Scribed by: Thania Seymour Date of Report: 03/06/18 Time of Report: 18:29 Physician Review and Approval Statement: Portions of this note were transcribed by an ED scribe. I personally performed the history, physical exam, and medical decision making; and confirm the accuracy of the information in the transcribed note.
[2018-03-06] MEDS ORDERED: HALOPERIDOL LACT 5 MG/ML INJ IM ONE (19:28)
[2018-03-06] MEDS ORDERED: HALOPERIDOL LACT 5 MG/ML INJ ONE (19:29)
[2018-03-06] MEDS ORDERED: HALOPERIDOL LACT 5 MG/ML INJ IVP ONE (19:34)
[2018-03-07 03:56] VITALS: BP 143/74
== END 2018-03-07 03:56 | disposition home or self-care (01) ==
LOC: EDUNIT#
DX: F31.2 Bipolar disorder, current episode manic severe with psychotic features (principal); F20.9 Schizophrenia, unspecified; Z59.0 Homelessness
CPT/HCPCS: 96374; 99284; J1630

== ENCOUNTER 2018-03-18 18:13 | Emergency (ER) | payer MEDICAID, OTHER ==
[2018-03-18] MEDS ORDERED: LORazepam 2 MG/ML INJ IM ONE ×2 (18:27→18:33)
[2018-03-18] MEDS ORDERED: HALOPERIDOL LACT 5 MG/ML INJ IM ONE (18:27)
[2018-03-18] MEDS ORDERED: LORazepam 2 MG/ML INJ IM PRN (18:30)
--- NOTE | 2018-03-18 18:30 | EDPHY ---
H & P Stated Complaint: gravely diabled m1. [facility], released upon admission to ED - Personal History LMP (Females 10-55): Unknown Current Tetanus Diphtheria and Acellular Pertussis (TDAP): Yes Tetanus Vaccine Date: <10yrs - Medical/Surgical History Hx Asthma: No Hx Chronic Respiratory Disease: No Hx Diabetes: No Hx Cardiac Disease: No Hx Renal Disease: No Hx Cirrhosis: No Hx Alcoholism: No Hx HIV/AIDS: No Hx Splenectomy or Spleen Trauma: No Other PMH: tonsilectomy, Cystitis, CHRONIC PAIN, ADHD, BIPOLAR, c section, + ESBL , schizophrenia, IV drug use - Social History Smoking Status: Current every day smoker Time Seen by Provider: 03/18/18 18:15 HPI/ROS: CHIEF COMPLAINT: "Did you bring those pussy-eating cockheads with you?" HISTORY OF PRESENT ILLNESS: 48-year-old homeless female familiar to emergency department staff, history of substance abuse psychotic disorder, bipolar disorder, methamphetamine abuse, [facility] for disorganized thoughts , rapid speech, tangential thoughts . Patient denies suicidal or homicidal ideation. Admits to methamphetamine use in the past few days. PRIMARY CARE PROVIDER: REVIEW OF SYSTEMS: 10 systems reviewed and negative with the exception of the elements mentioned in the history of present illness PAST MEDICAL & SURGICAL HISTORY: Bipolar disorder. Homelessness. Substance induced psychotic disorder SOCIAL HISTORY: Admits to methamphetamine use within the past 48 hr PHYSICAL EXAM (Prior to examination, patient consented to physical exam, hands were washed and my usual and customary physical exam procedures followed) 1) GENERAL: poorly kept, agitated, yelling, rapid speech, flight of ideas. 2) HEAD: Normocephalic, atraumatic 3) HEENT: Pupils equal, round, reactive to light bilaterally. Sclera anicteric. 4) NECK: Full range of motion, no meningeal signs. 5) LUNGS: Clear auscultation bilaterally, no wheezes, no rhonchi, no retractions. 6) HEART: Regular rate and rhythm, no murmur, no heave, no gallop. 7) ABDOMEN: No guarding, no rebound, no focal tenderness, 8) MUSCULOSKELETAL: No peripheral edema or discoloration. 9) BACK: No visual or palpable abnormality. 10) SKIN: No rash, no petechiae. 11) Psychiatric: Rapid speech, flight of ideas, paranoid, appears to be responding to internal stimuli DIFFERENTIAL DIAGNOSIS: In no particular order including but not limited to polysubstance abuse, suicidal ideation, homicidal ideation (Nick,Garrett Annie) Constitutional: Initial Vital Signs Temperature (C) 37.2 C 03/18/18 18:15 Heart Rate 92 03/18/18 18:15 Respiratory Rate 18 03/18/18 18:15 Blood Pressure 133/104 H 03/18/18 18:15 O2 Sat (%) 98 03/18/18 18:15 O2 Delivery Mode Room Air Allergies/Adverse Reactions: nitrofurantoin macrocrystalline [From Macrobid] Allergy (Unknown, Verified 03/11 05:37) Hives Home Medications: Medication Instructions Recorded Multivitamins [Multivitamin (*)] 1 each PO DAILY 03/11/18 Acetaminophen [Tylenol 325mg (*)] 650 mg PO Q4HRS PRN tab 03/15/18 Albuterol [Proventil Inhaler HFA 2 puffs IH Q4HRS PRN mdi 03/15/18 (*)] Gabapentin 600 mg PO TID 30 Days #90 tablet 03/15/18 Lurasidone HCl [Latuda] 40 mg PO DAILY AT 6PM 30 Days #30 03/15/18 tab Nicotine [Nicotine Patch] 21 mg TD AD 30 Days #30 patch.td24 03/15/18 Sodium Cl Nasal [[place] (*)] 1 spray [place] PRN PRN btl 03/15/18 traZODone [traZODONE 100MG (*)] 100 mg PO HS 30 Days #30 tab 03/15/18 Medical Decision Making ED Course/Re-evaluation: 6:32 p.m.: Reviewed patient's old medical records. Emergency department staff is familiar with patient. Patient will allow me to examine her however is threatening physical harm to myself and staff if we attempt to obtain diagnostic studies. Will administer Haldol and Ativan prior to obtaining diagnostic studies. 7:59 p.m.: Informed by mental health client representative that the patient will be re- evaluated in the morning due to her acute methamphetamine use 2:00 a.m.: Care turned over to Dr. Shashank Ng at this time. Patient resting comfortably. (Garrett Romero Annie) 0559: No acute events events overnight. Patient is sleeping. Patient will have re-evaluation this morning by mental health. They are familiar with her. Plan for re-evaluation this morning. Signed over at [address] May (Shashank Ng) Other Provider: Care assumed at 6:45 a.m. For this patient with schizoaffective disorder, bipolar. Plan for psychiatric evaluation this morning. 850: Patient is evaluated by myself. Currently she is not delusional. She knows she has a [facility] and knows that it is Wednesday the . She wants to be discharged, get some "beans to eat" and is planning on staying at the nursing home. She denies homicidal or suicidal ideations or hallucinations. At this time she does not appear to meet criteria for a continued 72 hr mental health hold. She does not appear to be acutely gravely disabled. The hold his vacated by myself. (Uri May) - Data Points Medications Given: Discontinued Medications Haloperidol Lactate (Haldol Injection) 10 mg IM EDNOW ONE Stop: 03/18/18 18:28 Last Admin: 03/18/18 18:42 Dose: 10 mg Lorazepam (Ativan Injection) 1 mg IM EDNOW ONE Stop: 03/18/18 18:28 Last Admin: 03/18/18 18:32 Dose: Not Given Lorazepam (Ativan Injection) 2 mg IM EDNOW ONE Stop: 03/18/18 18:34 Last Admin: 03/18/18 18:42 Dose: 2 mg Departure - Departure Disposition: Home, Routine, Self-Care Clinical Impression: Substance-induced psychotic disorder Condition: Good Instructions: Methamphetamine (By mouth) Referrals: [facility],. [Clinic] - As per Instructions [facility],. [Clinic] - As per Instructions
[2018-03-19 08:21] VITALS: BP 98/57
== END 2018-03-19 08:55 | disposition home or self-care (01) ==
DX: F19.159 Other psychoactive substance abuse with psychoactive substance-induced psychotic disorder, unspecified (principal); F25.9 Schizoaffective disorder, unspecified; F31.9 Bipolar disorder, unspecified; F17.200 Nicotine dependence, unspecified, uncomplicated; Z59.0 Homelessness
CPT/HCPCS: 96372; 99284; J1630; J2060

== ENCOUNTER 2018-04-24 09:49 | Emergency (ER) | payer MEDICAID, OTHER ==
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
[2018-04-24 11:14] LABS: PLATELET COUNT 283 10^3/uL (150-400)
[2018-04-24] MEDS ORDERED: CEPHALEXIN 500 MG CAP PO ONE ×2 (13:32→22:56)
[2018-04-24] MEDS ORDERED: IBUPROFEN 600 MG TAB PO ONE (13:53)
[2018-04-24] MEDS ORDERED: OLANZapine DISINTEGR 10 MG TAB ONE (19:14)
[2018-04-24] MEDS ORDERED: OLANZapine DISINTEGR 10 MG TAB PO ONE (19:16)
[2018-04-24] MEDS ORDERED: HALOPERIDOL LACT 5 MG/ML INJ ONE (19:59)
[2018-04-24] MEDS ORDERED: HALOPERIDOL LACT 5 MG/ML INJ IVP ONE (20:03)
[2018-04-24] MEDS ORDERED: MIDAZOLAM 10 MG/2 ML VIAL IM ONE (20:03)
[2018-04-24 23:08] VITALS: BP 86/53
[2018-04-25] MEDS ORDERED: CEPHALEXIN 500 MG CAP PO SCH ×2 (01:00)
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
--- NOTE | 2018-04-25 06:01 | ASMTTCLDSP ---
[facility] Discharge Disposition Disposition: Answers: Discharge Disposition Notes: Notes: Pt stated commitment or ability to keep self safe, denied thoughts of self harm or harm to others. Pt expressed a desire to f/u with [facility] psychiatrist Dr. Gibson on 04/26/18. Pt was given local hotline information and [facility] brochure After an Attempt. Discharge Concerns/Recommendations: Notes: In consultation with [facility] ED physician, Franco Ambrocio MD, and on-call psychiatrist, Jose Salinas MD, both concurred that pt does not appear to meet 27-65 criteria requiring psychiatric hospitalization as pt does not appear to be an imminent risk of harm to self/others/gravely disabled due to a mental illness condition. Dr. Ambrocio provided telephone order read back vacating M1 hold at 0600 hrs. Was patient given the Answers: Not applicable Inpatient Behavioral Health Prohibited Belongings List while in the ED? Psychiatrist vacating M1 Franco Ambrocio MD Hold: Date and time M1 hold 04/25/2018 06:00 AM vacated (time format is hh:mm): Type of Hold: Answers: M1/72-hour Hold Hold initiated by: Answers: Police Date Signed: 04/25/2018 06:00 AM Electronically Signed By:Alex Toribio
== END 2018-04-25 07:17 | disposition home or self-care (01) ==
LOC: MERGE 09:49 → EDBD 09:49
DX: F23 Brief psychotic disorder (principal); F15.20 Other stimulant dependence, uncomplicated; N39.0 Urinary tract infection, site not specified
CPT/HCPCS: 96372; 96374; 99284; J1630; 80305; G0480

== ENCOUNTER 2018-04-25 09:48 | Emergency (ER) | payer OTHER, MEDICAID ==
[2018-04-25 10:15] VITALS: BP 106/67
--- NOTE | 2018-04-25 15:52 | EDPHY ---
H & P Time Seen by Provider: 04/25/18 10:11 HPI/ROS: CHIEF COMPLAINT: Suicidal ideation HISTORY OF PRESENT ILLNESS: This is a 48-year-old female who was discharged from the emergency department about 8:00 a.m. this morning. Previously been admitted approximately 21 hr prior. Patient had been admitted for suicidal ideation as well as a agitation. She was positive for methamphetamines. She was seen by [facility] under hold was vacated. She had a urinary tract infection and she was given antibiotics. She was discharged from the emergency department about 2 hr ago. Evidently, she had a court appearance and well at court began to complain of suicidal ideation to the associate professor of surgery. She was placed on a 72 hr mental health hold and transferred here. On arrival to the emergency department she was seen again by [facility] who deemed that she was malingering. Patient has had no new complaints. REVIEW OF SYSTEMS: A comprehensive 10 system review of systems was reviewed and is otherwise negative aside from elements mentioned in the history of present illness and medical decision making. PAST MEDICAL HISTORY: Bipolar disorder, schizophrenia, recently diagnosed urinary tract infection. SOCIAL HISTORY: Currently homeless. VITAL SIGNS: see nurse's notes. GENERAL: Well-developed, well-nourished, in no acute distress. HEENT: Normal, no discharge or icterus, moist mucous membranes. Neck: supple, FROM. LUNGS: Clear to auscultation bilaterally, no wheezes, rhonchi or rales. CARDIAC: Regular rate and rhythm, no rubs, murmurs or gallops. ABDOMEN: Soft, nontender, nondistended, bowel sounds normal. BACK: No CVA tenderness. No vertebral tenderness. EXTREMITIES: No edema, FROM. NEURO: Alert and oriented, grossly nonfocal. SKIN: Warm and dry, no rash. Smoking Status: Current every day smoker Constitutional: Initial Vital Signs Temperature (C) 36.7 C 04/25/18 10:12 Heart Rate 100 04/25/18 10:12 Respiratory Rate 16 04/25/18 10:12 Blood Pressure 106/67 04/25/18 10:12 O2 Sat (%) 99 04/25/18 10:12 O2 Delivery Mode Room Air Allergies/Adverse Reactions: nitrofurantoin macrocrystalline [From Macrobid] Allergy (Unknown, Verified 03/11 05:37) Hives Home Medications: Medication Instructions Recorded Multivitamins [Multivitamin (*)] 1 each PO DAILY 03/11/18 Acetaminophen [Tylenol 325mg (*)] 650 mg PO Q4HRS PRN tab 03/15/18 Albuterol [Proventil Inhaler HFA 2 puffs IH Q4HRS PRN mdi 03/15/18 (*)] Gabapentin 600 mg PO TID 30 Days #90 tablet 03/15/18 Lurasidone HCl [Latuda] 40 mg PO DAILY AT 6PM 30 Days #30 03/15/18 tab Nicotine [Nicotine Patch] 21 mg TD AD 30 Days #30 patch.td24 03/15/18 Sodium Cl Nasal [[place] (*)] 1 spray EACHNARE PRN PRN btl 03/15/18 traZODone [traZODONE 100MG (*)] 100 mg PO HS 30 Days #30 tab 03/15/18 MDM/Departure - [facility] ED Course/Re-evaluation: Patient's 72 hr mental health hold was vacated on arrival. Patient left the emergency department without notifying the staff. - Depart Disposition: Against Medical Advice Clinical Impression: Bipolar disorder Qualifiers: Active/Remission status: remission status unspecified Qualified Code(s): F31.9 - Bipolar disorder, unspecified Schizophrenia Qualifiers: Schizophrenia type: other Qualified Code(s): F20.89 - Other schizophrenia; F20.8 - Other schizophrenia Urinary tract infection Qualifiers: Urinary tract infection type: acute cystitis Hematuria presence: without hematuria Qualified Code(s): N30.00 - Acute cystitis without hematuria Referrals: Patient,NotPresent [Primary Care Provider] - As per Instructions
== END 2018-04-25 11:19 | disposition left against medical advice (07) ==
LOC: EEVIPCON 09:48
DX: F31.9 Bipolar disorder, unspecified (principal); F20.89 Other schizophrenia; N30.00 Acute cystitis without hematuria; F15.20 Other stimulant dependence, uncomplicated; Z59.0 Homelessness

== ENCOUNTER 2018-05-02 00:11 | Inpatient (IN) | payer OTHER ==
[2018-05-02] MEDS ORDERED: OLANZapine 10 MG/2 ML VIAL ONE (00:29)
[2018-05-02] MEDS ORDERED: OLANZapine 10 MG/2 ML VIAL IM ONE (00:38)
[2018-05-02 00:45] LABS: PLATELET COUNT 239 10^3/uL (150-400)
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
[2018-05-02] MEDS ORDERED: LORazepam 2 MG/ML INJ IM ONE (04:54)
[2018-05-02] MEDS ORDERED: OLANZapine DISINTEGR 5 MG TAB PO ONE ×2 (07:26→15:20)
[2018-05-02] MEDS ORDERED: LORazepam 1 MG TAB PO ONE (15:19)
--- NOTE | 2018-05-02 15:31 | PDCONSULT ---
Leasing Associate Note: This is a 48 y/o female with history of bipolar disorder and schizophrenia presenting to the emergency via ambulance and a M1 hold for danger to self. She apparently was found in the [employer] grocery store locked in the bathroom, her speech rambling. She alledgedly poured jello powder on her body and claimed that she had been injured and was bleeding. Police threatened her with a taser before she calmed down. She is non-compliant with answering questions. Her speech is manic and rambling. Past Medical/Surgical History 1. Bipolar disorder 2. Schizophrenia 3. Tonsillectomy 4. Cystitis 5. Chronic pain 6. ADHD 7. C/S 8. IV drug use 9. + ESBL Social 1. Homeless, history of methamphetamine abuse Family history: non-pertinent ROS: all negative except what is noted in the HPI and down below Constitutional: negative HEENT: negative Cardiovascular: negative Respiratory: negative GI: negative : negative Musculoskeletal: negative Skin: negative Neuro: negative Psych: see HPI Heme/Lymp: negative Allergy: negative Physical exam: all negative except what is noted in the HPI and down below Constitutional: unkempt appearance, non-compliant, no respiratory distress HEENT: negative Cardiovascular: S1, S2. No murmurs, rub or gallops heard. Respiratory: CTAB GI: negative : negative Musculoskeletal: negative Neuro: negative Psych: notably manic in presentation with rambling, grandiose concepts Heme/Lymp: negative Allergy: negative Lab data reviewed A/P: This is a 48 y/o female with history of bipolar and schizophrenia presenting on a M1 hold after alledgedly locking herself in a grocery store bathroom, pouring jello onto herself and reporting she was bleeding. Her lab work is unremarkable. Checked a TSH and is within normal range. I do not see any further medical attention needs before she departs to the behavioral floor.
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
--- NOTE | 2018-05-02 15:43 | ASMTTCLDSP ---
TLC Discharge Disposition Disposition: Answers: Admit Discharge Concerns/Recommendations: Notes: In consultation with [facility] ED physician, Rukhsana José MD and on-call psychiatrist, Ty Holman MD, both concurred that pt appears to meet 27-65 criteria requiring psychiatric hospitalization as pt appears to be gravely disabled due to a mental illness condition. Pt was given the 3N prohibited belongings list while in the ED. Was patient given the Answers: Yes Inpatient Behavioral Health Prohibited Belongings List while in the ED? For inpatient Ty Holman MD admission, the following psychiatrist agreed to accept patient for admission to Behavioral Health ([facility]): Date Signed: 05/02/2018 03:43 PM Electronically Signed By:Katy Moore
--- NOTE | 2018-05-02 15:50 | PDCONSULT ---
Tumbler Dyeing Machine Operator Note: patient seen/examined/discussed w REMY Denis. Story and MS exam c/w oscar. No concurrent medical problems. Check Levon for completeness. Agree w plan as outlined
[2018-05-02] MEDS ORDERED: MAGNESIUM HYDROXIDE 30 ML UDCUP PO PRN (19:30)
[2018-05-02] MEDS ORDERED: MAG HYDROX/AL HYDROX/SIMETH 30 ML UDCUP PO PRN (19:30)
[2018-05-02] MEDS: LORazepam 1 MG TAB PO PRN (20:47)
[2018-05-02] MEDS: ACETAMINOPHEN 325 MG TAB PO PRN (20:47)
[2018-05-02] MEDS: OLANZapine DISINTEGR 10 MG TAB PO PRN (20:47)
--- NOTE | 2018-05-03 00:26 | PDMN ---
Medical Necessity Medical necessity: Pt meets IP criteria as of 05/02/2018 per and [facility] B-004-IP (Bipolar Disorders, Adult: IP care); est los > 2 mn, pt presents on an M1 hold due to being an imminent risk of harm to herself or others; Hx Bipolar I Disorder.
[2018-05-03] MEDS: LORazepam 1 MG TAB PO PRN ×4 (04:33→20:31)
[2018-05-03] MEDS: OLANZapine DISINTEGR 10 MG TAB PO PRN ×4 (04:33→20:32)
[2018-05-03] MEDS: NICOTINE POLACRILEX 2 MG GUM B PRN ×2 (04:37→12:04)
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
[2018-05-03] MEDS: ACETAMINOPHEN 325 MG TAB PO PRN ×2 (08:04→11:59)
[2018-05-03] MEDS: guaiFENesin 600 MG TAB.ER PO SCH ×2 (11:32→20:32)
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
--- NOTE | 2018-05-04 07:58 | SOAPPROG ---
SOAP Progress Note Assessment/Plan: Assessment: Substance-induced psychosis. Methamphetamine abuse. R/O Schizoaffective Disorder, R/O Bipolar Disorder, R/O Schizophrenia, Homelessness. Slight improvement noted. (see subjective/objective note). Patient is not safe to discharge at this time as patient continues to exhibit signs of psychosis, and express psychosis symptoms. Patient requires continued inpatient care because of current psychosis, and requires inpatient level of care to stabilize in order to no longer be gravely disabled due to mental illness. Patient is unable to communicate her basic needs, unable to test reality, and continues to require prompting and direction from staff for ADLs. Patient exhibits inability to provide for herself, neglecting self-care, withdrawn from social interactions, currently shows inability to maintain any appropriate aspect of personal responsibility as an adult, patient becomes agitated and irritable easily and continues exhibited irritable behavior toward staff. Support system has inability to manage functional impairment at lower level of care. Patient could benefit from continued inpatient hospitalization for crisis stabilization , safety, and medication evaluation. Plan: 1. Psychotropic medications: After reviewing options, risks, and benefits patient agrees to continue current. No medication changes at this time as more time is needed to determine ongoing tolerability and efficacy. Plan is to continue to observe patient for response and side effects from medications, and ongoing monitoring and evaluation. 2. Review with patient informed consent and recommendations for psychotropic medication treatment listed below 3. Labs: no additional labs at this time 4. Therapy: continue milieu and group therapy 5. Further investigation including gathering information from patients relatives and review of past case records to inform treatment plan. 6. Safety/Wellness plan and follow-up outpatient appointments to be established prior to discharge. Next steps are for patient to meet with personal caregiver to plan a safe discharge plan and establish outpatient services for ongoing treatment. 7. Confer with inpatient treatment team regarding treatment plan. 8. Psychosocial stressors addressed through registered nurse hh case manager 9. Legal status: M1 10. Consider discharge Wednesday if patient is in stable condition, safe, and has a safe discharge plan. 11. Substance abuse interventions: methamphetamine PSYCHOTROPIC MEDICATION TREATMENT INFORMED CONSENT and RECOMMENDATIONS: Review nature of condition, diagnosis, and prognosis. Review nature and purpose of psychotropic medication treatment. Review type of psychotropic medications being ordered. Review risk and benefits of psychotropic medication treatment. Review probable length of time patient will need to take medications. Review risk and benefits of not undergoing psychotropic medication treatment. Review alternative treatments to psychotropic medications. Review psychotropic medications contraindications, drug-drug interactions, side effects, and importance of reporting any side effects to a psychiatric provider or nurse during inpatient hospitalization, and upon discharge to patients psychiatric outpatient provider, primary care provider, or other health child care provider. Review importance of asking a nurse, psychiatric provider, or primary care provider any questions or problems concerning the psychotropic medications. Verify patient understands the information that has been provided, and understands, accepts, and agrees to psychotropic medications. Review patients safety plan and importance of patient to report to staff while hospitalized if patient is ever a danger to self/others, or unable to care for self, and upon discharge, the importance for patient to contact [facility] or [facility], or go to the nearest emergency room, if patient is ever a danger to self/others, or unable to care for self. Recommend that upon discharge patient establish medication management treatment with a psychiatric provider, establishes routine therapy appointments, and follow-up with primary care provider. Verify patient understands and agrees to these recommendations. 05/04/18 07:57 Subjective: Following up with patient for evaluation of psychosis and safety. Patient reports, "Doing okay." Patient expresses the following psychiatric symptoms a little anxious. Patient reports taking medications as prescribed, and describes response to medications as fair. Patient does not report undesirable side effects from the medications, and agrees to continue current medications. Patient describes getting 8 hours of sleep, and reports she feels rested today. Patient reports using methamphetamine day prior to admission to hospital. Patient describes addiction to methamphetamine and requests referrals to outpatient substance abuse treatment. Objective: Vital Signs Temp Pulse Resp BP Pulse Ox 36.5 C 102 H 16 99/58 L 94 05/03/18 06:00 05/04/18 06:00 05/04/18 06:00 05/04/18 06:00 05/04/18 06:00 NURSING REPORT: Consulted with nursing for update on patients progress in treatment. Nurses report patient is not engaged in treatment, does not attend groups, slept 8 hours, expresses the following psychiatric symptoms: anxious and irritable; exhibits the following psychiatric symptoms: irritable, agitated , disorganized, tangential, loose associations; is eating all meals, is agreeable to medications and taking as prescribed with no report of side effects , with no s/s of EPS/akathisia, and denies SI/HI, denies A/V hallucinations, and denies delusions. SUBSTANCE ABUSE BRIEF INTERVENTION: Brief intervention regarding the risks of methamphetamine abuse is provided to patient with goal to reduce the risk of harm that could result from the continued use of methamphetamine, with the general aim to investigate the problem, raise awareness of problem, develop a solution with the patient, recommend a specific change or activity, and motivate the patient toward change. Assess substance abuse behavior and give supportive advice about harm reduction, recommend a reduction in hazardous/at- risk consumption patterns, and facilitate referrals for additional specialized treatment with intensive care specialist. Intermediate goal is for the patient to quit and attend outpatient substance abuse treatment. Intervention focus on intermediate goals to allow for more immediate success in the treatment process to keep the patient motivated. Review following with patient: Methamphetamine use risks: Short-term: insomnia, irritability, aggressive behavior, hallucinations, delusions, intellectual deficits, anxiety, depression, convulsions, damage to blood vessels in the brain causing strokes, high fevers, collapse of the circulatory system. Long-term: damage to nerve pathways, maybe irreversibly; overstimulation to dopamine impairing dopamine transport and reducing efficiency of dopamine receptors, the reward system becomes worn out, leading to inability to experience pleasure for years. OUTPATIENT SUBSTANCE ABUSE TREATMENT: Patient referred to outpatient provider and treatment for continued treatment related to substance abuse. MSE: The patient is a well-nourished female looking stated chronological age. Attire is appropriate, dress is hospital garb. Grooming status is inappropriate and disheveled. Ambulation is independent. Gait is normal and coordinated. Posture is normal and relaxed. Eye contact is inappropriate and staring. Motor activity is appropriate with purposeful, organized, coordinated movements; with no involuntary movements. Attitude is fairly cooperative, defensive and guarded at times. Patient appears distracted and does not relate well to this interviewer. Language production is spontaneous. Rate is pressured. Latency of response is shortened with irritable tone. Articulation is clear. Patient reports mood as okay with expansive and inappropriate affect. Patients thought process is non-linear and illogical, with loose associations, tangential thought. Patient does not report suicidal/homicidal thoughts, ideas, or plans. Patient denies auditory, visual hallucinations. Patient reports delusions. Patient does not appear to be attending to internal stimuli. Patients attention and concentration are poor. Patient is oriented to person, place, time. Patients insight is poor. Patients judgment is poor. - Time Spent With Patient Time Spent With Patient: 15 minutes, met with patient individually. - Pending Discharge Pending Discharge Within 24 Hours: No Pending Discharge Within 48 Hours: No ICD10 Worksheet Patient Problems: Problems Problem Status Onset Methamphetamine abuse Acute Psychosis Acute Acute psychosis Acute Acute urinary retention Acute Altered mental status Acute Bipolar disorder Acute Bipolar disorder, current episode manic severe with psychotic features Acute Dental infection Acute Dyspnea Acute ESBL (extended spectrum beta-lactamase) producing bacteria infection Acute Manic behavior Acute Polysubstance abuse Acute Pyelonephritis Acute Substance induced mood disorder Acute Unspecified mood [affective] disorder Acute Urinary tract infection Acute Vaginal foreign body Acute
[2018-05-04] MEDS: guaiFENesin 600 MG TAB.ER PO SCH ×2 (08:21→20:12)
[2018-05-04] MEDS: OLANZapine DISINTEGR 10 MG TAB PO PRN ×2 (09:09→15:08)
[2018-05-04] MEDS: LORazepam 1 MG TAB PO PRN ×2 (10:24→20:37)
[2018-05-04] MEDS: NICOTINE POLACRILEX 2 MG GUM B PRN (16:41)
[2018-05-04] MEDS: OLANZapine DISINTEGR 10 MG TAB PO SCH (20:12)
--- NOTE | 2018-05-05 08:17 | SOAPPROG ---
SOAP Progress Note Assessment/Plan: Assessment: Substance-induced psychosis. Methamphetamine abuse. R/O Schizoaffective Disorder, R/O Bipolar Disorder, R/O Schizophrenia, Homelessness. Slight improvement noted (see subjective/objective note). Patient is not safe to discharge at this time as patient continues to exhibit signs of psychosis, and express psychosis symptoms. Patient requires continued inpatient care because of current psychosis, and requires inpatient level of care to stabilize in order to no longer be gravely disabled due to mental illness. Patient is unable to communicate her basic needs, and continues to require prompting and direction from staff for ADLs. Patient exhibits inability to provide for herself, neglecting self-care, withdrawn from social interactions, currently shows inability to maintain any appropriate aspect of personal responsibility as an adult, patient becomes agitated and irritable easily and continues exhibited irritable behavior toward staff. Support system has inability to manage functional impairment at lower level of care. Patient could benefit from continued inpatient hospitalization for crisis stabilization, safety, and medication evaluation. Plan: 1. Psychotropic medications: After reviewing options, risks, and benefits patient agrees to continue current. No medication changes at this time as more time is needed to determine ongoing tolerability and efficacy. Plan is to continue to observe patient for response and side effects from medications, and ongoing monitoring and evaluation. 2. Review with patient informed consent and recommendations for psychotropic medication treatment listed below 3. Labs: no additional labs at this time 4. Therapy: continue milieu and group therapy 5. Further investigation including gathering information from patients relatives and review of past case records to inform treatment plan. 6. Safety/Wellness plan and follow-up outpatient appointments to be established prior to discharge. Next steps are for patient to meet with hospice care sales consultant to plan a safe discharge plan and establish outpatient services for ongoing treatment. 7. Confer with inpatient treatment team regarding treatment plan. 8. Psychosocial stressors addressed through caser up 9. Legal status: [facility] 10. Consider discharge Wednesday if patient is in stable condition, safe, and has a safe discharge plan. 11. Substance abuse interventions: methamphetamine PSYCHOTROPIC MEDICATION TREATMENT INFORMED CONSENT and RECOMMENDATIONS: Review nature of condition, diagnosis, and prognosis. Review nature and purpose of psychotropic medication treatment. Review type of psychotropic medications being ordered. Review risk and benefits of psychotropic medication treatment. Review probable length of time patient will need to take medications. Review risk and benefits of not undergoing psychotropic medication treatment. Review alternative treatments to psychotropic medications. Review psychotropic medications contraindications, drug-drug interactions, side effects, and importance of reporting any side effects to a psychiatric provider or nurse during inpatient hospitalization, and upon discharge to patients psychiatric outpatient provider, primary care provider, or other health small animal caretaker. Review importance of asking a nurse, psychiatric provider, or primary care provider any questions or problems concerning the psychotropic medications. Verify patient understands the information that has been provided, and understands, accepts, and agrees to psychotropic medications. Review patients safety plan and importance of patient to report to staff while hospitalized if patient is ever a danger to self/others, or unable to care for self, and upon discharge, the importance for patient to contact [facility] or [facility], or go to the nearest emergency room, if patient is ever a danger to self/others, or unable to care for self. Recommend that upon discharge patient establish medication management treatment with a psychiatric provider, establishes routine therapy appointments, and follow-up with primary care provider. Verify patient understands and agrees to these recommendations. 05/05/18 08:20 Subjective: Following up with patient for evaluation of psychosis and safety. Patient reports, "Doing okay. Not sure why I am here, bad medicine I guess. Cant really think right now." Patient expresses the following psychiatric symptoms severe anxiety. Patient reports taking medications as prescribed, and describes response to medications as fair. Patient does not report undesirable side effects from the medications, and agrees to continue current medications. Patient describes getting 8 hours of sleep, and reports she feels rested today. Patient reports using methamphetamine day prior to admission to hospital. Objective: Vital Signs Temp Pulse Resp BP Pulse Ox 36.2 C 98 16 102/67 93 05/05/18 06:47 05/05/18 06:47 05/05/18 06:47 05/05/18 06:47 05/05/18 06:47 NURSING REPORT: Consulted with nursing for update on patients progress in treatment. Nurses report patient is not engaged in treatment, does not attend groups, slept 8 hours, expresses the following psychiatric symptoms: anxious and irritable; exhibits the following psychiatric symptoms: irritable, agitated ; is eating all meals, is agreeable to medications and taking as prescribed with no report of side effects, with no s/s of EPS/akathisia, and denies SI/HI, denies A/V hallucinations, and denies delusions. SUBSTANCE ABUSE BRIEF INTERVENTION: Brief intervention regarding the risks of methamphetamine abuse is provided to patient with goal to reduce the risk of harm that could result from the continued use of methamphetamine, with the general aim to investigate the problem, raise awareness of problem, develop a solution with the patient, recommend a specific change or activity, and motivate the patient toward change. Assess substance abuse behavior and give supportive advice about harm reduction, recommend a reduction in hazardous/at- risk consumption patterns, and facilitate referrals for additional specialized treatment with director of managed care. Intermediate goal is for the patient to quit and attend outpatient substance abuse treatment. Intervention focus on intermediate goals to allow for more immediate success in the treatment process to keep the patient motivated. Review following with patient: Methamphetamine use risks: Short-term: insomnia, irritability, aggressive behavior, hallucinations, delusions, intellectual deficits, anxiety, depression, convulsions, damage to blood vessels in the brain causing strokes, high fevers, collapse of the circulatory system. Long-term: damage to nerve pathways, maybe irreversibly; overstimulation to dopamine impairing dopamine transport and reducing efficiency of dopamine receptors, the reward system becomes worn out, leading to inability to experience pleasure for years. OUTPATIENT SUBSTANCE ABUSE TREATMENT: Patient referred to outpatient provider and treatment for continued treatment related to substance abuse. MSE: The patient is a well-nourished female looking older than stated chronological age. Attire is appropriate dress is hospital garb. Grooming status is inappropriate and disheveled. Ambulation is independent. Gait is normal and coordinated. Posture is normal and relaxed. Eye contact is inappropriate and avoided. Motor activity is appropriate with purposeful, organized, coordinated movements; with no involuntary movements. Attitude is fairly cooperative, defensive and guarded at times. Patient appears distracted and does not relate well to this interviewer. Language production is spontaneous. Rate is pressured. Latency of response is shortened with irritable tone. Articulation is clear. Patient reports mood as okay with expansive and inappropriate affect. Patients thought process is non-linear and illogical. Patient does not report suicidal/homicidal thoughts, ideas, or plans. Patient denies auditory, visual hallucinations. Patient denies delusions. Patient does not appear to be attending to internal stimuli. Patients attention and concentration are poor. Patient is oriented to person, place, time. Patient's insight is poor. Patient's judgment is poor. - Time Spent With Patient Time Spent With Patient: 15 minutes, met with patient individually. - Pending Discharge Pending Discharge Within 24 Hours: No Pending Discharge Within 48 Hours: No ICD10 Worksheet Patient Problems: Problems Problem Status Onset Methamphetamine abuse Acute Psychosis Acute Acute psychosis Acute Acute urinary retention Acute Altered mental status Acute Bipolar disorder Acute Bipolar disorder, current episode manic severe with psychotic features Acute Dental infection Acute Dyspnea Acute ESBL (extended spectrum beta-lactamase) producing bacteria infection Acute Manic behavior Acute Polysubstance abuse Acute Pyelonephritis Acute Substance induced mood disorder Acute Unspecified mood [affective] disorder Acute Urinary tract infection Acute Vaginal foreign body Acute
[2018-05-05] MEDS: guaiFENesin 600 MG TAB.ER PO SCH ×2 (08:59→21:15)
[2018-05-05] MEDS: ALBUTEROL 60 PUFFS/8 GM MDI IH PRN (09:00)
--- NOTE | 2018-05-05 11:57 | ASMTCMCOM ---
CM Note CM Note Notes: CC called Pedro Kiser ([facility]-Therapist) at ; no answer left a detailed VM with all necessary return contact information. Date Signed: 05/05/2018 11:56 AM Electronically Signed By:Shawn Lechuga
--- NOTE | 2018-05-05 13:15 | ASMTCMCOM ---
CM Note CM Note Notes: CC spoke to Melissa therapist) with the [facility] program and she noted that herself and client's chief security and safety officer are trying to work to get her into the [facility] program (I'm guessing like a substance abuse [place] facility). She noted, [facility] will be closed on Wednesday and wanted to ask if possible for client to stay on the unit Wednesday; in which Melissa would come on the unit around 9:30am to walk client over to a meeting with P.O. and her PACE team. CC notified provider and will get back to [facility]. Date Signed: 05/05/2018 01:15 PM Electronically Signed By:Shawn Lechuga
[2018-05-05] MEDS: NICOTINE POLACRILEX 2 MG GUM B PRN (15:33)
[2018-05-05] MEDS: LORazepam 1 MG TAB PO PRN (15:34)
[2018-05-05] MEDS: OLANZapine DISINTEGR 10 MG TAB PO SCH (21:15)
--- NOTE | 2018-05-06 07:51 | SOAPPROG ---
SOAP Progress Note Assessment/Plan: Assessment: Substance-induced psychosis. Methamphetamine abuse. R/O Schizoaffective Disorder, R/O Bipolar Disorder, R/O Schizophrenia, Homelessness. Slight improvement noted (see subjective/objective note). Patient is not safe to discharge at this time as patient continues to exhibit signs of psychosis, and express psychosis symptoms. Patient requires continued inpatient care because of current psychosis, and requires inpatient level of care to stabilize in order to no longer be gravely disabled due to mental illness. Patient is unable to communicate her basic needs, and continues to require prompting and direction from staff for ADLs. Patient exhibits inability to provide for herself, neglecting self-care, withdrawn from social interactions, currently shows inability to maintain any appropriate aspect of personal responsibility as an adult, patient becomes agitated and irritable easily and continues to exhibit irritable behavior toward staff. Support system has inability to manage functional impairment at lower level of care. Patient could benefit from continued inpatient hospitalization for crisis stabilization, safety, and medication evaluation. Patient could benefit from substance abuse treatment following discharge, discharge on Wednesday with patients outpatient therapist to walk patient over to a meeting with patients correctional officer chief and patients PACE team to discuss admission into [facility] program for substance abuse. Patient could benefit substance abuse treatment as her use of methamphetamine as led to numerous visits to the ER and psychiatric hospitalizations. Plan: 1. Psychotropic medications: After reviewing options, risks, and benefits patient agrees to continue current. No medication changes at this time as more time is needed to determine ongoing tolerability and efficacy. Plan is to continue to observe patient for response and side effects from medications, and ongoing monitoring and evaluation. 2. Review with patient informed consent and recommendations for psychotropic medication treatment listed below 3. Labs: no additional labs at this time 4. Therapy: continue milieu and group therapy 5. Further investigation including gathering information from patients relatives and review of past case records to inform treatment plan. 6. Safety/Wellness plan and follow-up outpatient appointments to be established prior to discharge. Next steps are for patient to meet with body care manager to plan a safe discharge plan and establish outpatient services for ongoing treatment. 7. Confer with inpatient treatment team regarding treatment plan. 8. Psychosocial stressors addressed through spring encaser 9. Legal status: [facility] 10. Consider discharge Wednesday if patient is in stable condition, safe, and has a safe discharge plan. 11. Substance abuse interventions: methamphetamine PSYCHOTROPIC MEDICATION TREATMENT INFORMED CONSENT and RECOMMENDATIONS: Review nature of condition, diagnosis, and prognosis. Review nature and purpose of psychotropic medication treatment. Review type of psychotropic medications being ordered. Review risk and benefits of psychotropic medication treatment. Review probable length of time patient will need to take medications. Review risk and benefits of not undergoing psychotropic medication treatment. Review alternative treatments to psychotropic medications. Review psychotropic medications contraindications, drug-drug interactions, side effects, and importance of reporting any side effects to a psychiatric provider or nurse during inpatient hospitalization, and upon discharge to patients psychiatric outpatient provider, primary care provider, or other health health care facility administrator. Review importance of asking a nurse, psychiatric provider, or primary care provider any questions or problems concerning the psychotropic medications. Verify patient understands the information that has been provided, and understands, accepts, and agrees to psychotropic medications. Review patients safety plan and importance of patient to report to staff while hospitalized if patient is ever a danger to self/others, or unable to care for self, and upon discharge, the importance for patient to contact [facility] or [facility], or go to the nearest emergency room, if patient is ever a danger to self/others, or unable to care for self. Recommend that upon discharge patient establish medication management treatment with a psychiatric provider, establishes routine therapy appointments, and follow-up with primary care provider. Verify patient understands and agrees to these recommendations. 05/06/18 07:49 Subjective: Following up with patient for evaluation of psychosis and safety. When this RECREATIONAL SPORTS DIRECTOR asks patient how she is doing, patient responds, "I have no idea." Patient expresses the following psychiatric symptoms severe anxiety. Patient reports taking medications as prescribed, and describes response to medications as fair. Patient does not report undesirable side effects from the medications, and agrees to continue current medications. Patient describes getting 8 hours of sleep, and reports she feels rested today. Patient agrees to meet with her therapist on Wednesday, then discharge Wednesday with therapist to meet with her correctional officer chief and PACE team for referral to [facility] program. Objective: Vital Signs Temp Pulse Resp BP Pulse Ox 36.2 C 98 16 102/67 93 05/05/18 06:47 05/05/18 06:47 05/05/18 06:47 05/05/18 06:47 05/05/18 06:47 NURSING REPORT: Consulted with nursing for update on patients progress in treatment. Nurses report patient is not engaged in treatment, does not attend groups, slept 8 hours, expresses the following psychiatric symptoms: anxious and irritable; exhibits the following psychiatric symptoms: irritable, agitated ; is eating all meals, is agreeable to medications and taking as prescribed with no report of side effects, with no s/s of EPS/akathisia, and denies SI/HI, denies A/V hallucinations, and denies delusions. CARE COORDINATION/DISCHARGE PLANNING: Patient to meet with outpatient therapist Melissa on Wednesday to discuss meeting with therapist and correctional officer chief regarding being admitted into the [facility] program due to patients long history of substance use (methamphetamine) that has led to numerous visits to the ER and psychiatric admissions. This has program has been recommended by patients PACE team, therapist, and correctional officer chief. Patients inpatient treatment team also strongly recommends this program to patient. SUBSTANCE ABUSE BRIEF INTERVENTION: Brief intervention regarding the risks of methamphetamine abuse is provided to patient with goal to reduce the risk of harm that could result from the continued use of methamphetamine, with the general aim to investigate the problem, raise awareness of problem, develop a solution with the patient, recommend a specific change or activity, and motivate the patient toward change. Assess substance abuse behavior and give supportive advice about harm reduction, recommend a reduction in hazardous/at- risk consumption patterns, and facilitate referrals for additional specialized treatment with care specialist. Intermediate goal is for the patient to quit and attend outpatient substance abuse treatment. Intervention focus on intermediate goals to allow for more immediate success in the treatment process to keep the patient motivated. Review following with patient: Methamphetamine use risks: Short-term: insomnia, irritability, aggressive behavior, hallucinations, delusions, intellectual deficits, anxiety, depression, convulsions, damage to blood vessels in the brain causing strokes, high fevers, collapse of the circulatory system. Long-term: damage to nerve pathways, maybe irreversibly; overstimulation to dopamine impairing dopamine transport and reducing efficiency of dopamine receptors, the reward system becomes worn out, leading to inability to experience pleasure for years. OUTPATIENT SUBSTANCE ABUSE TREATMENT: Patient referred to outpatient provider and treatment for continued treatment related to substance abuse. MSE: The patient is a well-nourished female looking stated chronological age. Attire is appropriate dress is hospital garb. Grooming status is inappropriate and disheveled. Ambulation is independent. Gait is normal and coordinated. Posture is normal and relaxed. Eye contact is inappropriate and avoided. Motor activity is appropriate with purposeful, organized, coordinated movements ; with no involuntary movements. Attitude is fairly cooperative, defensive and guarded at times. Patient appears distracted and does not relate well to this interviewer. Language production is spontaneous. Rate is pressured. Latency of response is shortened with irritable tone. Articulation is clear. Patient reports mood as okay with expansive and inappropriate affect. Patients thought process is non-linear and illogical. Patient does not report suicidal/ homicidal thoughts, ideas, or plans. Patient denies auditory, visual hallucinations. Patient denies delusions. Patient does not appear to be attending to internal stimuli. Patients attention and concentration are poor. Patient is oriented to person, place, time. Patients insight is poor. Patients judgment is poor. - Time Spent With Patient Time Spent With Patient: 15 minutes, met with patient individually. - Pending Discharge Pending Discharge Within 24 Hours: No Pending Discharge Within 48 Hours: No ICD10 Worksheet Patient Problems: Problems Problem Status Onset Methamphetamine abuse Acute Psychosis Acute Acute psychosis Acute Acute urinary retention Acute Altered mental status Acute Bipolar disorder Acute Bipolar disorder, current episode manic severe with psychotic features Acute Dental infection Acute Dyspnea Acute ESBL (extended spectrum beta-lactamase) producing bacteria infection Acute Manic behavior Acute Polysubstance abuse Acute Pyelonephritis Acute Substance induced mood disorder Acute Unspecified mood [affective] disorder Acute Urinary tract infection Acute Vaginal foreign body Acute
[2018-05-06] MEDS: guaiFENesin 600 MG TAB.ER PO SCH ×2 (08:17→21:20)
[2018-05-06] MEDS: ALBUTEROL 60 PUFFS/8 GM MDI IH PRN (08:17)
[2018-05-06] MEDS: LORazepam 1 MG TAB PO PRN ×3 (08:19→21:19)
--- NOTE | 2018-05-06 12:46 | ASMTBHDC ---
Notes Note: Notes: This technical proposal writer and the patient discussed her discharge plan. The patient was calm, engaged, and appropriate. She was observed resting in her room. She agreed to notify this technical proposal writer if she had additional questions. Date Signed: 05/06/2018 12:46 PM Electronically Signed By:Apple Blanca
[2018-05-06] MEDS: NICOTINE POLACRILEX 2 MG GUM B PRN (14:01)
[2018-05-06] MEDS ORDERED: NICOTINE 21 MG/24 HR PATCH TD SCH (14:30)
[2018-05-06] MEDS: NICOTINE 14 MG/24 HR PATCH TD SCH (16:19)
[2018-05-06] MEDS: OLANZapine DISINTEGR 10 MG TAB PO SCH (21:19)
[2018-05-06] MEDS: DOCUSATE SODIUM 100 MG CAP PO SCH (21:20)
[2018-05-07] MEDS: ALBUTEROL 60 PUFFS/8 GM MDI IH PRN (08:55)
[2018-05-07] MEDS: NICOTINE 14 MG/24 HR PATCH TD SCH (08:55)
[2018-05-07] MEDS: DOCUSATE SODIUM 100 MG CAP PO SCH ×2 (08:55→20:34)
[2018-05-07] MEDS: guaiFENesin 600 MG TAB.ER PO SCH ×2 (08:55→20:34)
[2018-05-07] MEDS: OLANZapine DISINTEGR 10 MG TAB PO PRN ×2 (08:59→14:24)
[2018-05-07] MEDS: LORazepam 1 MG TAB PO PRN ×3 (08:59→20:35)
--- NOTE | 2018-05-07 13:54 | SOAPPROG ---
SOAP Progress Note Assessment/Plan: Assessment: Per Jeremiah Daugherty's notes: Substance-induced psychosis. Methamphetamine abuse. R/O Schizoaffective Disorder, R/O Bipolar Disorder, R/O Schizophrenia, Homelessness. Slight improvement noted (see subjective/objective note). Patient is not safe to discharge at this time as patient continues to exhibit signs of psychosis, and express psychosis symptoms. Patient requires continued inpatient care because of current psychosis, and requires inpatient level of care to stabilize in order to no longer be gravely disabled due to mental illness. Patient is unable to communicate her basic needs, and continues to require prompting and direction from staff for ADLs. Patient exhibits inability to provide for herself, neglecting self-care, withdrawn from social interactions, currently shows inability to maintain any appropriate aspect of personal responsibility as an adult, patient becomes agitated and irritable easily and continues to exhibit irritable behavior toward staff. Support system has inability to manage functional impairment at lower level of care. Patient could benefit from continued inpatient hospitalization for crisis stabilization, safety, and medication evaluation. Patient could benefit from substance abuse treatment following discharge, discharge on Wednesday with patients outpatient therapist to walk patient over to a meeting with patients founder chairman and chief creative officer and patients PACE team to discuss admission into [facility] program for substance abuse. Patient could benefit substance abuse treatment as her use of methamphetamine as led to numerous visits to the ER and psychiatric hospitalizations. Plan: 1. Psychotropic medications: After reviewing options, risks, and benefits patient agrees to continue current. PLAN: 05/07/18 13:50 1. Patient has tolerated Olanzapine without any complaints or SE's. Continue current dose. 2. CC has spoken with patient's clinical case manager who will facilitate patient's participation in [facility] program after d/c. 3. Patient slept 9+ hrs and has been eating 100% of meals. 4. No changes to treatment plan. Subjective: Patient c/o burning sensation with urination. Hospitalist has been notified and will f/u with UA results if needed. Patient denies any other complaints and has no SE's from Olanzapine or other medications. She spends most of the day sleeping and staying in her room. She does come out for meals, but does not attend groups or participate in treatment. She denies any SI/HI. Objective: Vital Signs Temp Pulse Resp BP Pulse Ox 36.5 C 79 16 112/68 92 05/07/18 06:00 05/07/18 06:00 05/07/18 06:00 05/07/18 06:00 05/07/18 06:00 MSE: Affect: Irritable Mood: "OK" TP: Linear TC: Denies any SI/HI Insight/ Judgment: Poor - Time Spent With Patient Time Spent With Patient: 15" - Pending Discharge Pending Discharge Within 24 Hours: No Pending Discharge Within 48 Hours: No ICD10 Worksheet Patient Problems: Problems Problem Status Onset Methamphetamine abuse Acute Psychosis Acute Acute psychosis Acute Acute urinary retention Acute Altered mental status Acute Bipolar disorder Acute Bipolar disorder, current episode manic severe with psychotic features Acute Dental infection Acute Dyspnea Acute ESBL (extended spectrum beta-lactamase) producing bacteria infection Acute Manic behavior Acute Polysubstance abuse Acute Pyelonephritis Acute Substance induced mood disorder Acute Unspecified mood [affective] disorder Acute Urinary tract infection Acute Vaginal foreign body Acute
[2018-05-07] MEDS: NICOTINE POLACRILEX 2 MG GUM B PRN ×2 (14:24→16:18)
--- NOTE | 2018-05-07 16:25 | ASMTBHDC ---
Notes Note: Notes: CC attempted to meet with pt several times during the day, but pt. was withdrawn to her room sleeping most of the day. Pt. reports feeling "alright" adding she is "ready to get out". Pt. reports she slept "quite a bit, too much" adding she suffers from depression. Pt. asked about her anti-depressant medication and why she is not getting it. Pt. reports eating well and attending "a few" groups. Pt. denied SI, HI, and paranoia. Pt. reports AH of "faces and patterns" adding these AH are sometime distressing and sometimes not. Pt. denied any issues while on the unit. Pt. stated she would like to discharge Wednesday to her PACE program. CC informed pt [facility] is closed on Wednesday. Pt. stated she is able to get herself to [facility] on Wednesday. Pt. stated she plans to stay in the correction. Pt. stated she is able to fill and take her medications and prescribed. Pt. stated she would like her prescriptions made out to [facility] with [facility]. CC spoke with pt's RN about pt's medications. CC informed pt she has not been prescribed her antidepressant due to the risk of going on and off of it. Pt. stated she understood. Pt. presents as alert, calm, good eye contact, lacking insight, and cooperative. Staff report pt. sleeping 9 hours last night and withdrawn to her room and sleeping most of the day. Staff report pt. being medication compliant. Date Signed: 05/07/2018 04:25 PM Electronically Signed By:Karyn Iniguez
[2018-05-07] MEDS: OLANZapine DISINTEGR 10 MG TAB PO SCH (20:34)
[2018-05-08] MEDS: ALBUTEROL 60 PUFFS/8 GM MDI IH PRN ×2 (08:15→12:27)
[2018-05-08] MEDS: LORazepam 1 MG TAB PO PRN ×3 (08:15→20:12)
[2018-05-08] MEDS: NICOTINE 14 MG/24 HR PATCH TD SCH (08:15)
[2018-05-08] MEDS: DOCUSATE SODIUM 100 MG CAP PO SCH ×2 (08:16→18:59)
[2018-05-08] MEDS: guaiFENesin 600 MG TAB.ER PO SCH ×2 (08:16→18:59)
[2018-05-08] MEDS: OLANZapine DISINTEGR 10 MG TAB PO PRN ×2 (08:16→15:03)
[2018-05-08] MEDS: NICOTINE POLACRILEX 2 MG GUM B PRN ×3 (12:27→15:48)
[2018-05-08] MEDS: ACETAMINOPHEN 325 MG TAB PO PRN (14:23)
--- NOTE | 2018-05-08 15:14 | ASMTBHDC ---
Notes Note: Notes: Pt. reports feeling "hot". Pt. stated she slept "as good as last night", noting she didn't sleep as long. Pt. reports eating well and attending groups. Pt. stated she would still like to be on an anti-depressant. CC reviewed why pt was not prescribed one. Pt. stated she was consistently taking her Wellbutrin for a "few weeks" prior to her admission. Pt. stated she would like to discharge on Wednesday. Pt. stated she needs a pair of shoes and a coat. Pt. reports feeling "lonely" while on the unit, adding she misses her dog and son. Pt. reported her dog is staying at her mother's house. Pt. denied SI, HI and paranoia. Pt. reports AVH, stating she sees "patterns and faces". Pt. presents as alert, calm, good eye contact, and cooperative. Staff report pt. sleeping 9.5 hours and being medication compliant. Date Signed: 05/08/2018 03:13 PM Electronically Signed By:Karyn Iniguez
--- NOTE | 2018-05-08 16:09 | SOAPPROG ---
SOAP Progress Note Assessment/Plan: Assessment: Per Jeremiah Daugherty's notes: Substance-induced psychosis. Methamphetamine abuse. R/O Schizoaffective Disorder, R/O Bipolar Disorder, R/O Schizophrenia, Homelessness. Slight improvement noted (see subjective/objective note). Patient is not safe to discharge at this time as patient continues to exhibit signs of psychosis, and express psychosis symptoms. Patient requires continued inpatient care because of current psychosis, and requires inpatient level of care to stabilize in order to no longer be gravely disabled due to mental illness. Patient is unable to communicate her basic needs, and continues to require prompting and direction from staff for ADLs. Patient exhibits inability to provide for herself, neglecting self-care, withdrawn from social interactions, currently shows inability to maintain any appropriate aspect of personal responsibility as an adult, patient becomes agitated and irritable easily and continues to exhibit irritable behavior toward staff. Support system has inability to manage functional impairment at lower level of care. Patient could benefit from continued inpatient hospitalization for crisis stabilization, safety, and medication evaluation. Patient could benefit from substance abuse treatment following discharge, discharge on Wednesday with patients outpatient therapist to walk patient over to a meeting with patients correction officer supervisor and patients PACE team to discuss admission into [facility] program for substance abuse. Patient could benefit substance abuse treatment as her use of methamphetamine as led to numerous visits to the ER and psychiatric hospitalizations. Plan: 1. Psychotropic medications: After reviewing options, risks, and benefits patient agrees to continue current. PLAN: 05/07/18 13:50 1. Patient has tolerated Olanzapine without any complaints or SE's. Continue current dose. 2. CC has spoken with patient's case folder who will facilitate patient's participation in [facility] program after d/c. 3. Patient slept 9+ hrs and has been eating 100% of meals. 4. No changes to treatment plan. PLAN: 05/08/18 16:06 1. Patient more socially engaged with peers and present in milieu. 2. Patient denies any problems with mood, sleep, energy, interest, or appetite. 3. Patient would like to d/c on Wednesday. CC and explained plan to d/c with CM to C[facility] program. 4. CCM Subjective: Patient is well-groomed and dressed today. She is present in milieu more than yesterday. When MD speaks to her, she is sitting in chair in front of TV watching football and talking to peers. She denies any SI/HI. She would like a new pair of shoes and a coat before she leaves hospital. Objective: Vital Signs Temp Pulse Resp BP Pulse Ox 36.5 C 79 16 112/68 92 05/07/18 06:00 05/07/18 06:00 05/07/18 06:00 05/07/18 06:00 05/07/18 06:00 MSE: Affect: Calm, pleasant and friendly Mood: "Good" TP: Linear TC: Denies any SI/HI Insight/Judgment: Poor - Time Spent With Patient Time Spent With Patient: 15" - Pending Discharge Pending Discharge Within 24 Hours: Yes Pending Discharge Date: 05/09/18 (Possible d/c Wednesday or Wednesday) Pending Discharge Time: 11:00 ICD10 Worksheet Patient Problems: Problems Problem Status Onset Methamphetamine abuse Acute Psychosis Acute Acute psychosis Acute Acute urinary retention Acute Altered mental status Acute Bipolar disorder Acute Bipolar disorder, current episode manic severe with psychotic features Acute Dental infection Acute Dyspnea Acute ESBL (extended spectrum beta-lactamase) producing bacteria infection Acute Manic behavior Acute Polysubstance abuse Acute Pyelonephritis Acute Substance induced mood disorder Acute Unspecified mood [affective] disorder Acute Urinary tract infection Acute Vaginal foreign body Acute
[2018-05-08] MEDS: OLANZapine DISINTEGR 10 MG TAB PO SCH (18:59)
[2018-05-09] MEDS ORDERED: LORazepam 1 MG TAB PO PRN (06:53)
[2018-05-09] MEDS: DOCUSATE SODIUM 100 MG CAP PO SCH ×2 (08:07→18:27)
[2018-05-09] MEDS: guaiFENesin 600 MG TAB.ER PO SCH ×2 (08:07→18:27)
[2018-05-09] MEDS: NICOTINE POLACRILEX 2 MG GUM B PRN ×3 (08:08→14:02)
[2018-05-09] MEDS: NICOTINE 14 MG/24 HR PATCH TD SCH (08:08)
[2018-05-09] MEDS: OLANZapine DISINTEGR 10 MG TAB PO PRN (08:12)
--- NOTE | 2018-05-09 08:14 | SOAPPROG ---
SOAP Progress Note Assessment/Plan: Assessment: Substance-induced psychosis. Methamphetamine abuse. R/O Schizoaffective Disorder, R/O Bipolar Disorder, R/O Schizophrenia, Homelessness. Slight improvement noted (see subjective/objective note). Patient is not safe to discharge at this time as patient continues to exhibit signs of psychosis, and express psychosis symptoms. Patient requires continued inpatient care because of current psychosis, and requires inpatient level of care to stabilize in order to no longer be gravely disabled due to mental illness. Patient is unable to communicate her basic needs, and continues to require prompting and direction from staff for ADLs. Patient exhibits inability to provide for herself, neglecting self-care, withdrawn from social interactions, currently shows inability to maintain any appropriate aspect of personal responsibility as an adult, patient becomes agitated and irritable easily and continues to exhibit irritable behavior toward staff. Support system has inability to manage functional impairment at lower level of care. Patient could benefit from continued inpatient hospitalization for crisis stabilization, safety, and medication evaluation. Patient could benefit from substance abuse treatment following discharge, discharge on Wednesday with patients outpatient therapist to walk patient over to a meeting with patients court collections officer and patients PACE team to discuss admission into [facility] program for substance abuse. Patient could benefit substance abuse treatment as her use of methamphetamine as led to numerous visits to the ER and psychiatric hospitalizations. Plan: 1. Psychotropic medications: After reviewing options, risks, and benefits patient agrees to continue current. No medication changes at this time as more time is needed to determine ongoing tolerability and efficacy. Plan is to continue to observe patient for response and side effects from medications, and ongoing monitoring and evaluation. 2. Review with patient informed consent and recommendations for psychotropic medication treatment listed below 3. Labs: no additional labs at this time 4. Therapy: continue milieu and group therapy 5. Further investigation including gathering information from patients relatives and review of past case records to inform treatment plan. 6. Safety/Wellness plan and follow-up outpatient appointments to be established prior to discharge. Next steps are for patient to meet with children's zoo caretaker to plan a safe discharge plan and establish outpatient services for ongoing treatment. 7. Confer with inpatient treatment team regarding treatment plan. 8. Psychosocial stressors addressed through case assistant 9. Legal status: [facility] 10. Consider discharge Wednesday if patient is in stable condition, safe, and has a safe discharge plan. 11. Substance abuse interventions: methamphetamine PSYCHOTROPIC MEDICATION TREATMENT INFORMED CONSENT and RECOMMENDATIONS: Review nature of condition, diagnosis, and prognosis. Review nature and purpose of psychotropic medication treatment. Review type of psychotropic medications being ordered. Review risk and benefits of psychotropic medication treatment. Review probable length of time patient will need to take medications. Review risk and benefits of not undergoing psychotropic medication treatment. Review alternative treatments to psychotropic medications. Review psychotropic medications contraindications, drug-drug interactions, side effects, and importance of reporting any side effects to a psychiatric provider or nurse during inpatient hospitalization, and upon discharge to patients psychiatric outpatient provider, primary care provider, or other health caregivers non medical. Review importance of asking a nurse, psychiatric provider, or primary care provider any questions or problems concerning the psychotropic medications. Verify patient understands the information that has been provided, and understands, accepts, and agrees to psychotropic medications. Review patients safety plan and importance of patient to report to staff while hospitalized if patient is ever a danger to self/others, or unable to care for self, and upon discharge, the importance for patient to contact [facility] or [facility], or go to the nearest emergency room, if patient is ever a danger to self/others, or unable to care for self. Recommend that upon discharge patient establish medication management treatment with a psychiatric provider, establishes routine therapy appointments, and follow-up with primary care provider. Verify patient understands and agrees to these recommendations. 05/09/18 08:14 Subjective: Following up with patient for evaluation of psychosis and safety. When this AUTOMATIC PRINT DEVELOPER asks patient how she is doing, patient responds, "Feeling better. When am I getting out of here?" Patient expresses the following psychiatric symptoms severe anxiety. Patient reports taking medications as prescribed, and describes response to medications as fair. Patient does not report undesirable side effects from the medications, and agrees to continue current medications. Patient describes getting 8 hours of sleep, and reports she feels rested today. Patient agrees to meet with her therapist on Wednesday, then discharge Wednesday with therapist to meet with her court collections officer and PACE team for referral to [facility] program. Objective: Vital Signs Temp Pulse Resp BP Pulse Ox 36.5 C 79 16 112/68 92 05/07/18 06:00 05/07/18 06:00 05/07/18 06:00 05/07/18 06:00 05/07/18 06:00 NURSING REPORT: Consulted with nursing for update on patients progress in treatment. Nurses report patient is not engaged in treatment, does not attend groups, slept 8 hours, expresses the following psychiatric symptoms: anxious and irritable; exhibits the following psychiatric symptoms: less irritable, less agitated; is eating all meals, is agreeable to medications and taking as prescribed with no report of side effects, with no s/s of EPS/akathisia, and denies SI/HI, denies A/V hallucinations, and denies delusions. CARE COORDINATION/DISCHARGE PLANNING: Patient to meet with outpatient therapist Melissa on Wednesday to discuss meeting with therapist and court collections officer regarding being admitted into the [facility] program due to patients long history of substance use (methamphetamine) that has led to numerous visits to the ER and psychiatric admissions. This has program has been recommended by patients PACE team, therapist, and court collections officer. Patients inpatient treatment team also strongly recommends this program to patient. SUBSTANCE ABUSE BRIEF INTERVENTION: Brief intervention regarding the risks of methamphetamine abuse is provided to patient with goal to reduce the risk of harm that could result from the continued use of methamphetamine, with the general aim to investigate the problem, raise awareness of problem, develop a solution with the patient, recommend a specific change or activity, and motivate the patient toward change. Assess substance abuse behavior and give supportive advice about harm reduction, recommend a reduction in hazardous/at- risk consumption patterns, and facilitate referrals for additional specialized treatment with child care attendant. Intermediate goal is for the patient to quit and attend outpatient substance abuse treatment. Intervention focus on intermediate goals to allow for more immediate success in the treatment process to keep the patient motivated. Review following with patient: Methamphetamine use risks: Short-term: insomnia, irritability, aggressive behavior, hallucinations, delusions, intellectual deficits, anxiety, depression, convulsions, damage to blood vessels in the brain causing strokes, high fevers, collapse of the circulatory system. Long-term: damage to nerve pathways, maybe irreversibly; overstimulation to dopamine impairing dopamine transport and reducing efficiency of dopamine receptors, the reward system becomes worn out, leading to inability to experience pleasure for years. OUTPATIENT SUBSTANCE ABUSE TREATMENT: Patient referred to outpatient provider and treatment for continued treatment related to substance abuse. MSE: The patient is a well-nourished female looking stated chronological age. Attire is appropriate dress is hospital garb. Grooming status is inappropriate and disheveled. Ambulation is independent. Gait is normal and coordinated. Posture is normal and relaxed. Eye contact is inappropriate and avoided. Motor activity is appropriate with purposeful, organized, coordinated movements ; with no involuntary movements. Attitude is fairly cooperative, defensive and guarded at times. Patient appears distracted and does not relate well to this interviewer. Language production is spontaneous. Rate is pressured. Latency of response is shortened with irritable tone. Articulation is clear. Patient reports mood as okay with expansive and inappropriate affect. Patients thought process is linear and fairly illogical. Patient does not report suicidal/ homicidal thoughts, ideas, or plans. Patient denies auditory, visual hallucinations. Patient denies delusions. Patient does not appear to be attending to internal stimuli. Patients attention and concentration are poor. Patient is oriented to person, place, time. Patients insight is poor. Patients judgment is poor. - Time Spent With Patient Time Spent With Patient: 15 minutes, met with patient individually. - Pending Discharge Pending Discharge Within 24 Hours: No Pending Discharge Within 48 Hours: No ICD10 Worksheet Patient Problems: Problems Problem Status Onset Methamphetamine abuse Acute Psychosis Acute Acute psychosis Acute Acute urinary retention Acute Altered mental status Acute Bipolar disorder Acute Bipolar disorder, current episode manic severe with psychotic features Acute Dental infection Acute Dyspnea Acute ESBL (extended spectrum beta-lactamase) producing bacteria infection Acute Manic behavior Acute Polysubstance abuse Acute Pyelonephritis Acute Substance induced mood disorder Acute Unspecified mood [affective] disorder Acute Urinary tract infection Acute Vaginal foreign body Acute
--- NOTE | 2018-05-09 12:11 | ASMTBHDC ---
Notes Note: Notes: Pt reports feeling "little frustrated". Pt. stated she doesn't know why she has to wait to be walked over to her appointment with PACE. Pt. stated she is also frustrated due to not seeing an MD or therapist while she has been here. Pt. stated she is also not getting all of her medications, including vyvanse, wellbutrin, and trazodone Pt. stated she is eating well and attending groups. Pt. stated she needs a coat and a backpack prior to discharge. Pt. denied SI, HI and paranoia. Pt. reports AVH, or "faces and patterns", adding she sees them in "treets, clouds, and dots" adding her AVH is called "Pareidolia". Pt. presents as alert, irritated, fair eye contact, demanding at times, and cooperative. Staff report pt. sleeping 9 hours and being medication compliant. Date Signed: 05/09/2018 12:11 PM Electronically Signed By:Karyn Iniguez
[2018-05-09] MEDS: LORazepam 0.5 MG TAB PO PRN (17:01)
[2018-05-09] MEDS: OLANZapine DISINTEGR 10 MG TAB PO SCH (18:27)
[2018-05-10 07:28] VITALS: BP 113/61
[2018-05-10] MEDS: guaiFENesin 600 MG TAB.ER PO SCH (08:17)
[2018-05-10] MEDS: DOCUSATE SODIUM 100 MG CAP PO SCH (08:17)
[2018-05-10] MEDS: NICOTINE 14 MG/24 HR PATCH TD SCH (08:18)
[2018-05-10] MEDS: ACETAMINOPHEN 325 MG TAB PO PRN (08:18)
[2018-05-10] MEDS: ALBUTEROL 60 PUFFS/8 GM MDI IH PRN (08:21)
[2018-05-10] MEDS: OLANZapine DISINTEGR 10 MG TAB PO PRN (08:22)
[2018-05-10] MEDS: LORazepam 0.5 MG TAB PO PRN (08:22)
[2018-05-10] MEDS: NICOTINE POLACRILEX 2 MG GUM B PRN (08:23)
--- NOTE | 2018-05-10 12:27 | BDS ---
REASON FOR ADMISSION: From the ED note dated 05/02/2018, patient presented to the emergency room on an M1 hold for being a danger to herself. The patient was brought by ambulance after police placed the patient on an M1 hold. The patient was found in the [facility] grocery store locked in the bathroom with rambling speech. The patient had poured jello powder on her body and claimed that she had been injured and was bleeding. Due to patient's acute condition, she was unable to provide much meaningful history during the ED evaluation. The patient was admitted involuntarily on an M1 hold for being a danger to herself. The patient was admitted for safety, crisis stabilization, and medication evaluation. ADMITTING DIAGNOSES: 1. Substance-induced psychotic disorder. 2. Methamphetamine abuse. 3. Nicotine dependence. 4. Rule out bipolar disorder with psychotic features. ADMISSION PHYSICAL EXAM: The patient was seen for internal medicine consultation on 05/02/2018, for medical clearance for inpatient psychiatric hospitalization and treatment. The patient was also seen in the ED on 2018. The patient was medically cleared for inpatient psychiatric hospitalization and treatment. For further details, please refer to notes dated 05/02/2018. ADMISSION LABS: 1. CBC within normal limits except eosinophils were low at 0.0, basophils low at 0.2, absolute monocytes were elevated at 1.00, and absolute eosinophils were low at 0.00. 2. BMP within normal limits except glucose was elevated at 117. 3. TSH within normal limits at 2.080. 4. Urines: Urine nitrite was positive, urine leukocyte esterase 2+, elevated. Urine white blood cell was elevated at 50-182, and urine bacteria was elevated at 1+. 5. Toxicology screen was negative for ethyl alcohol. The patient was not screened for substances of abuse. MAJOR PROCEDURES OR TESTS: None. HOSPITAL COURSE: The most prominent symptoms and behaviors while the patient was here were nonlinear, illogical, disorganized thought process. The patient was isolated and avoided social interaction. The patient also presented tangential, irritable and agitated, hyper talkative. Treatment modalities utilized were milieu and group therapy. Zyprexa Zydis 10 mg p.o. q.h.s. was started to target psychosis symptoms related to recent methamphetamine use. Zyprexa was tolerated with no report of side effects and with good response. Zyprexa Zydis 10 mg p.o. q.4 hours p.r.n. was started to target acute agitation and psychosis symptoms; was tolerated with no report of side effects and with good response. Ativan 0.5-1 mg p.o. q. 4 hours was started to target acute agitation; was tolerated with no report of side effects and with good response. The patient reported using methamphetamine 1 day prior to admission. The patient's acute psychosis likely due to recent methamphetamine use. The patient 's psychosis did clear throughout the course of the hospitalization. The patient has improved considerably with no signs of psychiatric symptoms and no psychiatric symptoms expressed at time of discharge. The patient reports she has improved since admission. States to be in stable condition, feels safe to discharge, and she contracts for safety. The patient's response to treatment was good. There were no adverse or unexpected results of treatment. The patient was safe throughout her stay, active in treatment, engaged in groups, and was appropriate with staff and other patients. The patient met with the treatment team prior to discharge to assess readiness for discharge and reviewed discharge plan. The treatment teams' consensus is the patient is in stable condition, has a safe discharge plan, and is ready to discharge today. CONDITION AT DISCHARGE: Patient is in stable condition and is no longer a danger to self or others, and is not gravely disabled due to mental illness. Patient is no longer in need of inpatient level of care, and can be safely and effectively treated within the community. The patients level of risk at time of discharge is low. MSE: The patient is casually dressed and with good hygiene , and looks stated age. Patient is sitting, posture is upright, and position is relaxed. Patient appears awake, alert, and responds appropriately and reasonably during interview. Patient is engaged, relates well to interviewer, and emotional facial expression is appropriate to situation and changes appropriately with topic. Patient is cooperative, makes comfortable eye contact , and movements are voluntary, deliberate, coordinated, and smooth and even with no inappropriate movements. Patient makes laryngeal sounds effortlessly and shares conversation appropriately; pace of conversation is appropriate, and stream of talking is fluent; articulation is clear and understandable; word choice is effortless and appropriate for education level; completes sentences, occasionally pausing to think; rate and volume are appropriate for interview and setting. Patient reports mood as euthymic. Patients affect is stable with full variable range, congruent with mood, and appropriate to speech and circumstances. Patient has linear and logical thinking, with no loose associations, tangential thought, thought blocking, concrete thinking, or any other signs of formal thought disorder. Patient denies suicidal and homicidal ideation, and denies hallucinations and delusions. Patient appears to be a reliable historian with sound judgement and good insight into current condition. Patient has no apparent dysfunction in recent or remote memory noted , and no evidence of gross cognitive dysfunction noted at any point during the interview. DISCHARGE DIAGNOSES: 1. Substance-induced psychotic disorder. 2. Methamphetamine abuse. 3. Nicotine dependence. 4. Rule out bipolar disorder with psychotic features. CURRENT MEDICATIONS: After reviewing options, risks, and benefits with the patient, the patient agrees to continue the followin. Tylenol 650 mg p.o. q.4 hours p.r.n. 2. Albuterol 2 puffs IH q.4 hours p.r.n. 3. Nicoderm 14 mg TD daily. 4. Zyprexa 10 mg p.o. q.h.s. At time of discharge, the patient requests prescriptions for albuterol and Zyprexa. 30-day prescriptions are provided. The prescriptions are reviewed with the patient at time of discharge to ensure accuracy and patient understanding. DISPOSITION: The patient left hospital independently and voluntarily and plans to attend an outpatient appointment with her therapist and ship's officer through her [facility] program to discuss admission to the [facility] program. FOLLOWUP: surgical services coordinator reports the appropriate outpatient follow-up services have been established and outpatient appointments have been scheduled. The patient received written instructions with times and dates of outpatient follow-up appointments. The following follow-up recommendations were provided to the patient at discharge: Continue psychotropic medications as prescribed and attend appointments as scheduled. Report any side effects to a psychiatric outpatient provider, a primary care provider, or other health manager career. Address any questions or problems concerning the psychotropic medications with a psychiatric outpatient provider, a primary care provider, or other health manager career. Contact [facility] or [facility], or go to the nearest emergency room, if you are ever a danger to yourself/others, or unable to care for yourself. As soon as possible, establish a routine medication management treatment with a psychiatric provider, establish routine therapy appointments, and follow-up with a primary care provider. SUBSTANCE ABUSE BRIEF INTERVENTION: Brief intervention regarding the risks of methamphetamine abuse is provided to patient with goal to reduce the risk of harm that could result from the continued use of methamphetamine, with the general aim to investigate the problem, raise awareness of problem, develop a solution with the patient, recommend a specific change or activity, and motivate the patient toward change. Assess substance abuse behavior and give supportive advice about harm reduction, recommend a reduction in hazardous/at- risk consumption patterns, and facilitate referrals for additional specialized treatment with career developer. Intermediate goal is for the patient to quit and attend outpatient substance abuse treatment. Intervention focus on intermediate goals to allow for more immediate success in the treatment process to keep the patient motivated. Review following with patient: Methamphetamine use risks: Short-term: insomnia, irritability, aggressive behavior, hallucinations, delusions, intellectual deficits, anxiety, depression, convulsions, damage to blood vessels in the brain causing strokes, high fevers, collapse of the circulatory system. Long-term: damage to nerve pathways, maybe irreversibly; overstimulation to dopamine impairing dopamine transport and reducing efficiency of dopamine receptors, the reward system becomes worn out, leading to inability to experience pleasure for years. OUTPATIENT SUBSTANCE ABUSE TREATMENT: Patient referred to outpatient provider and treatment for continued treatment related to substance abuse. LEGAL COURSE: The patient was admitted on an M1 hold for involuntary inpatient psychiatric hospitalization. The patient was then placed on a short-term certification. Patient discharged today independently and voluntarily, and short-term certification was terminated at time of discharge. ATTITUDE AT TIME OF DISCHARGE: The patients attitude was positive at time of discharge, and patient reports looking forward to discharging today. The patient reports she feels safe to discharge, is no longer a danger to herself or others, is in stable condition, and contracts for safety. Patient states she will continue medications as prescribed, and establish medication management treatment with an outpatient provider after discharge. Patient reports she understands the information that has been provided to her, and she understands, accepts, and agrees to psychotropic medications. Patient describes internal protective factors as the coping skills she has learned while hospitalized here, and she plans to continue to practice these coping skills after discharge. LABS AND STUDIES: There were no pending labs or studies at time. ADVANCE DIRECTIVES: There were no advance directives on file, and patient was full code during this hospitalization. The following psychotropic medication treatment informed consent and recommendations were provided to the patient at time of discharge. Patient reports she understands, accepts, and agrees to the information that has been provided. PSYCHOTROPIC MEDICATION TREATMENT INFORMED CONSENT and RECOMMENDATIONS: Review nature of condition, diagnosis, and prognosis. Review nature and purpose of psychotropic medication treatment. Review type of psychotropic medications being prescribed. Review risk and benefits of psychotropic medication treatment. Review probable length of time will need to take medications. Review risk and benefits of not undergoing psychotropic medication treatment. Review alternative treatments to psychotropic medications. Review psychotropic medications contraindications, side effects, and importance of reporting any side effects to a psychiatric provider, primary care provider, or other health manager career. Review importance of her asking a psychiatric provider or primary care provider any questions or problems concerning the psychotropic medications. Review importance of reporting to a psychiatric provider, primary care provider, or other health manager career if she plans to or becomes . Review safety plan and the importance to contact [facility] or [facility] , or go to the nearest emergency room, if ever a danger to yourself/others, or unable to care for yourself. Recommend upon discharge to establish routine medication management treatment with a psychiatric provider, establish routine therapy appointments, and follow-up with a primary care provider. Verify patient understands, accepts, and agrees to the information that has been provided. /[id number]/MODL MTDD
== END 2018-05-10 09:38 | disposition home or self-care (01) | DRG 897 ==
LOC: EDUNIT# → EEVIPCON 00:11 → BBEH 18:25 → UNDOADMIN 18:49
PROVIDERS: ADMIT Psychiatry & Neurology Psychiatry; ATTEND Psychiatry & Neurology Psychiatry
DX: F15.159 Other stimulant abuse with stimulant-induced psychotic disorder, unspecified (principal); F17.200 Nicotine dependence, unspecified, uncomplicated; Z59.0 Homelessness
CPT/HCPCS: G0480; J2060

== ENCOUNTER 2018-05-16 17:32 | Emergency (ER) | payer OTHER, MEDICAID ==
--- NOTE | 2018-05-16 17:44 | EDPHY ---
H & P Stated Complaint: ETOH Time Seen by Provider: 05/16/18 17:42 HPI/ROS: CHIEF COMPLAINT: Intoxicated HISTORY OF PRESENT ILLNESS: The patient is brought to the emergency department with presumed alcohol intoxication. She was found on a sidewalk vomiting with alcohol on her breath. The patient is unable to provide much history. 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 She recently was admitted to the inpatient psychiatric unit for some psychiatric stabilization. It does not appear that she has been compliant with the plan established by the discharging psychiatrist. The patient herself is unable to provide much history but denies any complaints of acute pain at the time of her arrival. REVIEW OF SYSTEMS: A comprehensive 10 point review of systems is otherwise negative aside from elements mentioned in the history of present illness. Source: Patient, EMS Exam Limitations: No limitations - Personal History Tetanus Vaccine Date: <10yrs - Medical/Surgical History Hx Asthma: No Hx Chronic Respiratory Disease: No Hx Diabetes: No Hx Cardiac Disease: No Hx Renal Disease: No Hx Cirrhosis: No Hx Alcoholism: No Hx HIV/AIDS: No Hx Splenectomy or Spleen Trauma: No Other PMH: Past medical history: Substance abuse, obesity, alcohol abuse - Family History Significant Family History: No pertinent family hx - Social History Smoking Status: Current some day smoker Alcohol Use: Other Drug Use: Other - Physical Exam Exam: General Appearance: Obese female, somnolent, alcohol on breath Eyes: Pupils equal and round no pallor or injection ENT, Mouth: Mucous membranes moist Respiratory: There are no retractions, lungs are clear to auscultation Cardiovascular: Regular rate and rhythm Gastrointestinal: Abdomen is soft and nontender, no masses, bowel sounds normal Neurological: Uncooperative, no gross motor deficit noted Skin: Warm and dry, no rashes Musculoskeletal: Neck is supple nontender Extremities: symmetrical, full range of motion Constitutional: Initial Vital Signs Temperature (C) 36.4 C 05/16/18 17:39 Heart Rate 88 05/16/18 17:39 Respiratory Rate 18 05/16/18 17:39 Blood Pressure 107/71 05/16/18 17:39 O2 Sat (%) 94 05/16/18 17:39 O2 Delivery Mode Nasal Cannula O2 (L/minute) 2 Allergies/Adverse Reactions: nitrofurantoin macrocrystalline [From Macrobid] Allergy (Unknown, Verified 05/16 17:42) Hives nitrofurantoin [From Macrobid] Allergy (Verified 05/16/18 17:42) Home Medications: Medication Instructions Recorded Acetaminophen [Tylenol 325mg (*)] 650 mg PO Q4HRS PRN tab 05/10/18 Albuterol [Proventil Inhaler HFA 2 puffs IH Q4HRS PRN 30 Days #1 mdi 05/10/18 (*)] Nicotine [Nicoderm Cq 14 mg (*)] 14 mg TD DAILY patch 05/10/18 OLANZapine [Zyprexa] 10 mg PO HS 30 Days #30 tablet 05/10/18 Medical Decision Making ED Course/Re-evaluation: The patient presents to the ED with alcohol intoxication. All the patient is somewhat uncooperative I detect no signs of trauma on her exam. Her vital signs are stable. The patient's laboratory studies are within normal limits aside from her blood alcohol level which is elevated at 0.269. The plan will be for serial examinations in the ED for ongoing sobriety. The patient re-evaluated at 8:00 p.m. She is ambulatory with assistance. The patient currently has a warrant for her arrest for parole violation. She will be discharged home with customary aftercare instructions and return precautions. She is discharged to the custody of the police. Differential Diagnosis: Differential diagnosis considered includes alcohol intoxication, occult trauma, hypoglycemia, metabolic derangement - Data Points Laboratory Results: Laboratory Results 05/16/18 17:50 05/16/18 17:50 05/16/18 05/16/18 17:50 17:50 WBC 7.95 10^3/uL 10^3/uL (3.80-9.50) RBC 4.03 10^6/uL L 10^6/uL (4.18-5.33) Hgb 12.9 g/dL g/dL (12.6-16.3) Hct 38.8 % % (38.0-47.0) MCV 96.3 fL fL (81.5-99.8) MCH 32.0 pg pg (27.9-34.1) MCHC 33.2 g/dL g/dL (32.4-36.7) RDW 11.8 % % (11.5-15.2) Plt Count 258 10^3/uL 10^3/uL (150-400) MPV 9.2 fL fL (8.7-11.7) Neut % (Auto) 54.4 % % (39.3-74.2) Lymph % (Auto) 36.6 % % (15.0-45.0) Greenlee % (Auto) 6.8 % % (4.5-13.0) Eos % (Auto) 1.1 % % (0.6-7.6) Baso % (Auto) 0.8 % % (0.3-1.7) Nucleat RBC Rel Count 0.0 % % (0.0-0.2) Absolute Neuts (auto) 4.33 10^3/uL 10^3/uL (1.70-6.50) Absolute Lymphs (auto) 2.91 10^3/uL 10^3/uL (1.00-3.00) Absolute Monos (auto) 0.54 10^3/uL 10^3/uL (0.30-0.80) Absolute Eos (auto) 0.09 10^3/uL 10^3/uL (0.03-0.40) Absolute Basos (auto) 0.06 10^3/uL 10^3/uL (0.02-0.10) Absolute Nucleated RBC 0.00 10^3/uL 10^3/uL (0-0.01) Immature Gran % 0.3 % % (0.0-1.1) Immature Gran # 0.02 10^3/uL 10^3/uL (0.00-0.10) Sodium 142 mEq/L mEq/L (135-145) Potassium 4.1 mEq/L mEq/L (3.5-5.2) Chloride 112 mEq/L H mEq/L (97-110) Carbon Dioxide 21 mEq/l L mEq/l (22-31) Anion Gap 9 mEq/L mEq/L (6-14) BUN 9 mg/dL mg/dL (7-23) Creatinine 0.7 mg/dL mg/dL (0.6-1.0) Estimated GFR > 60 Glucose 86 mg/dL mg/dL (70-100) Calcium 8.7 mg/dL mg/dL (8.5-10.4) Specimen Hemolysis 107 Ethyl Alcohol 259 mg/dL H mg/dL (0-10) Medications Given: Discontinued Medications Ondansetron HCl (Zofran) 4 mg IVP EDNOW ONE Stop: 05/16/18 18:01 Last Admin: 05/16/18 18:00 Dose: 4 mg Departure - Departure Disposition: Home, Routine, Self-Care Clinical Impression: Alcoholic intoxication Condition: Good Instructions: Alcohol Intoxication (ED)
[2018-05-16] MEDS ORDERED: ONDANSETRON 4 MG/2 ML VIAL ONE (17:54)
[2018-05-16] MEDS ORDERED: ONDANSETRON 4 MG/2 ML VIAL IVP ONE (18:00)
[2018-05-16 18:11] LABS: PLATELET COUNT 258 10^3/uL (150-400)
[2018-05-16 20:48] VITALS: BP 109/89
== END 2018-05-16 20:57 | disposition home or self-care (01) ==
LOC: EDUNIT#
DX: F10.929 Alcohol use, unspecified with intoxication, unspecified (principal)
CPT/HCPCS: 96374; 99284; J2405; G0480